=== PATIENT | female | born 1990 | race Caucasian/White ===

== ENCOUNTER 2016-05-21 18:48 | Emergency (ER) | payer MEDICAID ==
[~2016-05-21 18:48] MED LIST: MACR100C2 PO; PROM1SUP7 RECTAL
--- NOTE | 2016-05-21 19:27 | PD ---
HPI Chief Complaint right lower quadrant pain Date Seen: May 21, 2016 Time Seen: 19:00 Travel History International Travel<30 Days: No Contact w/Intl Traveler<30Days: No Known Affected Area: No History of Present Illness HPI 26yo [id number](1 ectopic) presents with right lower quadrant discomfort since yesterday. Sharp, feels best when lying down, worse with activity. Denies vaginal bleeding. Para: 1 : 5 Miscarriage: 3 History Past Medical History Medical History: Denies Significant Hx Obstetric History Obstetric History Medically treated ectopic SAB x 2 Past Surgical History Narrative Surgical appendectomy Social History Alcohol Use: No Tobacco Use: No Substance Abuse: No Allergies-Medications (Allergen,Severity, Reaction): Coded Allergies: No Known Allergies (Verified , 03/17/16) Home Meds Active Scripts Promethazine Supp (Phenergan Supp)25 Mg Supp25 Mg RECTAL Q6H PRN (NAUSEA OR VOMITING) #14 SUPP Ref 0 Prov:Shan Alves MD 03/19/16 Nitrofurantoin Monohydrate Macrocrystals (Macrobid)100 Mg [id number] Mg PO BIDPC # 10 CAP Prov:Shan Alves MD 03/19/16 Review of Systems Except as stated in HPI: all other systems reviewed are Neg Gastrointestinal: Abdominal Pain Physical Exam Narrative GENERAL: Well-nourished, well-developed patient. SKIN: Warm and dry. HEAD: Normocephalic and atraumatic. EYES: No scleral icterus. No injection or drainage. ENT: No nasal drainage noted. Mucous membranes pink. Airway patent. NECK: Supple, trachea midline. No JVD. CARDIOVASCULAR: Regular rate and rhythm without murmurs, gallops, or rubs. RESPIRATORY: Breath sounds equal bilaterally. No accessory muscle use. BREASTS: Bilateral exam showed no masses , no retractions, no nipple discharge. ABDOMEN/GI: Abdomen soft, non-tender, bowel sounds present, no rebound, no guarding Gravid to [-] weeks size Fundal Height: [-] 17 GENITOURINARY: External Genitalia: intact and normal in appearance BUS glands: [-] normal Cervix: [-] closed Dilatation: [-] closed Effacement: [-] 0% Station: [-] -3 Presentation: [-] Membranes: [intact or ruptured] Uterine Contractions: [-] FHT's: 152 by doppler Category: [-] Baseline: [-] Reactive: [-] Variability: [-] Decels: [-] EXTREMITIES: No cyanosis or edema. BACK: Nontender without obvious deformity. No CVA tenderness. NEUROLOGICAL: Awake and alert. Motor and sensory grossly within normal limits. Five out of 5 muscle strength in all muscle groups. Normal speech. Data Data Vital Signs Reviewed: Yes [facility] Medical Record Reviewed: Yes Plan 17 weeks gestation with mild right lower quadrant pain Discharge with followup to OB Diagnosis Diagnosis: Primary Impression: Abdominal pain affecting Additional Impressions: 17 weeks gestation of Previous delivery affecting , antepartum Disposition: 01 DISCHARGE HOME Julianna Rosa MD May 21, 2016 19:27
== END 2016-05-21 20:36 | disposition home or self-care (01) ==
LOC: HOBED 18:48
DX: O26.892 Other specified pregnancy related conditions, second trimester (principal); R10.31 Right lower quadrant pain; O34.219 Maternal care for unspecified type scar from previous cesarean delivery; Z3A.17 17 weeks gestation of pregnancy
CPT/HCPCS: 99284

== ENCOUNTER 2016-07-31 18:31 | Emergency (ER) | payer MEDICAID ==
[2016-07-31 18:38] VITALS: BP 200/72; PULSE 103; RESP 24; TEMP 98.8; O2SAT 98
[2016-07-31 18:45] VITALS: BP 135/74
[2016-07-31] MEDS ORDERED: ZANTTAB9 PO (23:10)
[2016-07-31] MEDS ORDERED: ACETAMINOPHEN 325 MG TAB PO ONE (23:30)
[2016-07-31] MEDS ORDERED: SODIUM CHLORIDE 0.9% FLUSH 10 ML FLUSH IVF PRN (23:30)
--- NOTE | 2016-07-31 23:55 | PD ---
HPI Chief Complaint: Cold / Flu Symptoms Time Seen by Provider: 23:28 Travel History International Travel<30 days: No Contact w/Intl Traveler<30days: No Traveled to known affect area: No History of Present Illness HPI 26-year-old female presents emergency Department with flulike symptoms as well as some nausea without vomiting as well as some vague abdominal cramping and decreased movements. She is at approximately 27 weeks gestational age. She denies any vaginal bleeding or vaginal discharge. She states that she's been having some sore throat and feeling very rundown lately. She's been taking Tylenol at home for her symptoms without relief. Her OB is Dr. Alves. [facility] Past Medical History Asthma: No Anxiety: No Depression: No Heart Rhythm Problems: No Cancer: No Cardiovascular Problems: No Chemotherapy: No Chest Pain: No Congestive Heart Failure: No COPD: No Diabetes: No Diminished Hearing: No Endocrine: No Genitourinary: No Musculoskeletal: No Neurologic: No Psychiatric: No Reproductive: No Immunizations Current: Yes Radiation Therapy: No Thyroid Disease: No ?: : 2 Para: 1 Past Surgical History Appendectomy: Yes Section: Yes Other Surgery: Yes (APPENDECTOMY, ) Social History Alcohol Use: No Tobacco Use: No Substance Use: No (OCC MARIJUANA HX) Allergies-Medications (Allergen,Severity, Reaction): Coded Allergies: No Known Allergies (Verified , 07/31/16) Reported Meds & Prescriptions Reported Meds & Active Scripts Active Reported Zantac 75 (Ranitidine HCl) 75 Mg Tab 75 Mg PO DAILY Take 30 to 60 minutes before eating food or drinking beverages that cause heartburn. Review of Systems Except as stated in HPI: all other systems reviewed are Neg Physical Exam Narrative GENERAL: Well-developed well-nourished no apparent distress. SKIN: Focused skin assessment warm/dry. HEAD: Atraumatic. Normocephalic. EYES: Pupils equal and round. No scleral icterus. No injection or drainage. ENT: No nasal bleeding or discharge. Mucous membranes pink and dry. NECK: Trachea midline. No JVD. CARDIOVASCULAR: Regular rate and rhythm. No murmur appreciated. RESPIRATORY: No accessory muscle use. Clear to auscultation. Breath sounds equal bilaterally. GASTROINTESTINAL: Abdomen soft, non-tender, nondistended. Hepatic and splenic margins not palpable. Gravid abdomen. MUSCULOSKELETAL: No obvious deformities. No clubbing. No cyanosis. No edema. NEUROLOGICAL: Awake and alert. No obvious cranial nerve deficits. Motor grossly within normal limits. Normal speech. PSYCHIATRIC: Appropriate mood and affect; insight and judgment normal. Data Data Last Documented VS Vital Signs Date Time Temp Pulse Resp B/P Pulse Ox O2 Delivery O2 Flow Rate FiO2 08/01/16 00:07 88 18 99 Room Air 07/31/16 18:45 135/74 07/31/16 18:38 98.8 Orders Influenzae A/B Antigen (07/31/16 23:02) Ed Poc Ultrasound (07/31/16 ) Complete Blood Count With Diff (07/31/16 23:28) Comprehensive Metabolic Panel (07/31/16 23:28) Chest, Single Ap (07/31/16 23:28) Ecg Monitoring (07/31/16 23:28) Iv Access Insert/Monitor (07/31/16 23:28) Oximetry (07/31/16 23:28) Oxygen Administration (07/31/16 23:28) Sodium Chloride 0.9% Flush (Ns Flush) (07/31/16 23:30) Acetaminophen (Tylenol) (07/31/16 23:30) Labs Laboratory Tests Test 07/31/16 23:59 White Blood Count 9.8 TH/MM3 Red Blood Count 4.47 MIL/MM3 Hemoglobin 13.8 GM/DL Hematocrit 39.9 % Mean Corpuscular Volume 89.2 FL Mean Corpuscular Hemoglobin 30.9 PG Mean Corpuscular Hemoglobin 34.6 % Concent Red Cell Distribution Width 12.7 % Platelet Count 139 TH/MM3 Mean Platelet Volume 10.8 FL Neutrophils (%) (Auto) 77.5 % Lymphocytes (%) (Auto) 12.5 % Monocytes (%) (Auto) 7.7 % Eosinophils (%) (Auto) 2.1 % Basophils (%) (Auto) 0.2 % Neutrophils # (Auto) 7.6 TH/MM3 Lymphocytes # (Auto) 1.2 TH/MM3 Monocytes # (Auto) 0.8 TH/MM3 Eosinophils # (Auto) 0.2 TH/MM3 Basophils # (Auto) 0.0 TH/MM3 CBC Comment DIFF FINAL Differential Comment Sodium Level 139 MEQ/L Potassium Level 3.7 MEQ/L Chloride Level 104 MEQ/L Carbon Dioxide Level 23.3 MEQ/L Anion Gap 12 MEQ/L Blood Urea Nitrogen 5 MG/DL Creatinine 0.50 MG/DL Estimat Glomerular Filtration 148 ML/MIN Rate Random Glucose 83 MG/DL Calcium Level 8.8 MG/DL Total Bilirubin 0.1 MG/DL Aspartate Amino Transf 16 U/L (AST/SGOT) Alanine Aminotransferase 23 U/L (ALT/SGPT) Alkaline Phosphatase 77 U/L Total Protein 7.1 GM/DL Albumin 3.0 GM/DL MDM Medical Decision Making Medical Screen Exam Complete: Yes Emergency Medical Condition: Yes Differential Diagnosis Influenza, pneumonia, dehydration, abdominal cramping in . Narrative Course Patient was roomed in the emergency department, rapid flu test is negative, chest x-ray ordered as well as basic labs and fluid rehydration. Patient was discussed with Dr. Underwood to be sent to OB for evaluation of her abdominal pain and continued evaluation of her upper respiratory symptoms she is agreed that the patient should be moved to the OB evaluation area. An IV was started and basic labs are sent. Diagnosis Primary Impression: Abdominal pain affecting Additional Impression: URI (upper respiratory infection) Disposition: 70 TRANSFER TO OTHER FACILITY (taken to OB floor) Condition: Stable Brett Russell MD Jul 31, 2016 23:54
[2016-08-01 00:07] VITALS: PULSE 88; RESP 18; O2SAT 99
[2016-08-01 00:09] LABS: AUTOMATED NEUTROPHIL # 7.6 TH/MM3 (1.8-7.7); BASOPHIL % 0.2 % (0.0-2.0); EOSINOPHIL # 0.2 TH/MM3 (0-0.4); EOSINOPHIL % 2.1 % (0.0-4.0); HEMATOCRIT 39.9 % (35.0-46.0); HEMO FLAGS DIFF FINAL; LYMPH % 12.5 % (9.0-44.0); LYMPHOCYTE # 1.2 TH/MM3 (1.0-4.8); MEAN CELL VOLUME 89.2 FL (80.0-100.0); MEAN CORPUSCULAR HEMOGLOBIN 30.9 PG (27.0-34.0); MEAN CORPUSCULAR HGB CONC 34.6 % (32.0-36.0); MONO % 7.7 % (0.0-8.0); NEUT % 77.5 % (16.0-70.0); PLATELET COUNT 139 TH/MM3 (150-450); RED BLOOD COUNT 4.47 MIL/MM3 (4.00-5.30); RED CELL DISTRIBUTION WIDTH 12.7 % (11.6-17.2); WHITE BLOOD COUNT 9.8 TH/MM3 (4.0-11.0)
--- NOTE | 2016-08-01 00:13 | RADRPT ---
EXAM DATE/TIME: 08/01/2016 00:05 [place] COMPARISON: No previous studies available for comparison. INDICATIONS : Chest pain, cough, and congestion. MEDICAL HISTORY : None. SURGICAL HISTORY : None. ENCOUNTER: Initial ACUITY: 4 - 6 days PAIN SCORE: 1/10 LOCATION: Bilateral chest FINDINGS: A single view of the chest demonstrates the lungs to be symmetrically aerated without evidence of mas s, infiltrate or effusion. The cardiomediastinal contours are unremarkable. Osseous structures are intact. CONCLUSION: Normal examination. Shan Rodriguez MD on August 01, 2016 at 0:11 Board Certified Radiologist. This report was verified electronically.
[2016-08-01 00:40] LABS: ANION GAP 12 MEQ/L (5-15); AST (GOT) 16 U/L (15-37); BICARBONATE 23.3 MEQ/L (21.0-32.0); BLOOD UREA NITROGEN 5 MG/DL (7-18); CHLORIDE 104 MEQ/L (98-107); GLOMERULAR FILTRATION RATE 148 ML/MIN (>89); POTASSIUM 3.7 MEQ/L (3.5-5.1); SODIUM (NA) 139 MEQ/L (136-145)
[2016-08-01 00:43] LABS: ALKALINE PHOSPHATASE 77 U/L (45-117); ALT (GPT) 23 U/L (10-53); TOTAL BILIRUBIN ADULT 0.1 MG/DL (0.2-1.0)
--- NOTE | 2016-08-01 01:23 | PD ---
HPI Chief Complaint Nasal congestion, sinus pressure and decreased movement Date Seen: Aug 01, 2016 Time Seen: 01:18 Travel History International Travel<30 Days: No Contact w/Intl Traveler<30Days: No Known Affected Area: No History of Present Illness HPI 26-year-old female at 27 weeks 2 days complains of nasal congestion and decrease appetite since Saturday. Denies fever denies coughing denies shortness of breath. Patient has been evaluated down in the main emergency department and diagnosed with a viral infection and told to take [id number] medications as necessary. Patient has a follow-up OB appointment tomorrow Para: 1 : 5 History Past Medical History Medical History: Denies Significant Hx Obstetric History Obstetric History section Past Surgical History Narrative Surgical Cholecystectomy and section Family History Family History: Negative Social History Alcohol Use: No Tobacco Use: No Substance Abuse: No Allergies-Medications (Allergen,Severity, Reaction): Coded Allergies: No Known Allergies (Verified , 07/31/16) Home Meds Reported Medications Ranitidine (Zantac 75)75 Mg Tab75 Mg PO DAILY Ref 0 Take 30 to 60 minutes before eating food or drinking beverages that cause heartburn. 07/31/16 Discontinued Scripts Promethazine Supp (Phenergan Supp)25 Mg Supp25 Mg RECTAL Q6H PRN (NAUSEA OR VOMITING) #14 SUPP Ref 0 Prov:Shan Alves MD 03/19/16 Nitrofurantoin Monohydrate Macrocrystals (Macrobid)100 Mg Tsb591 Mg PO BIDPC # 10 CAP Prov:Shan Alves MD 03/19/16 Review of Systems General / Constitutional: Chills HENT: Other (nasal congestion) Physical Exam Vital Signs Date Time Temp Pulse Resp B/P Pulse Ox O2 Delivery O2 Flow Rate FiO2 08/01/16 00:07 88 18 99 Room Air 07/31/16 18:45 135/74 07/31/16 18:38 98.8 103 24 200/72 98 Narrative GENERAL: Well-nourished, well-developed patient. SKIN: Warm and dry. HEAD: Normocephalic and atraumatic. EYES: No scleral icterus. No injection or drainage. ENT: Nasal congestion is noted .Mucous membranes pink. Airway patent. NECK: Supple, trachea midline. No JVD. CARDIOVASCULAR: Regular rate and rhythm without murmurs, gallops, or rubs. RESPIRATORY: Breath sounds equal bilaterally. No accessory muscle use. BREASTS: Bilateral exam showed no masses , no retractions, no nipple discharge. ABDOMEN/GI: Abdomen soft, non-tender, bowel sounds present, no rebound, no guarding Gravid to [-] weeks size pelvic exam deferred Fundal Height: [-] GENITOURINARY: External Genitalia: intact and normal in appearance BUS glands: [-] Cervix: [-] Dilatation: [-] Effacement: [-] Station: [-] Presentation: [-] Membranes: [intact or ruptured] Uterine Contractions: [-] FHT's: Category: [-1] Baseline: 130 Reactive: Moderate Variability: Moderate Decels: [Absent-] EXTREMITIES: No cyanosis or edema. BACK: Nontender without obvious deformity. No CVA tenderness. NEUROLOGICAL: Awake and alert. Motor and sensory grossly within normal limits. Five out of 5 muscle strength in all muscle groups. Normal speech. Data Data Vital Signs Reviewed: Yes Orders Influenzae A/B Antigen (07/31/16 23:02) Ed Poc Ultrasound (07/31/16 ) Complete Blood Count With Diff (07/31/16 23:28) Comprehensive Metabolic Panel (07/31/16 23:28) Chest, Single Ap (07/31/16 23:28) Ecg Monitoring (07/31/16 23:28) Iv Access Insert/Monitor (07/31/16 23:28) Oximetry (07/31/16 23:28) Oxygen Administration (07/31/16 23:28) Sodium Chloride 0.9% Flush (Ns Flush) (07/31/16 23:30) Acetaminophen (Tylenol) (07/31/16 23:30) Labs Laboratory Tests Test 07/31/16 23:59 White Blood Count 9.8 Red Blood Count 4.47 Hemoglobin 13.8 Hematocrit 39.9 Mean Corpuscular Volume 89.2 Mean Corpuscular Hemoglobin 30.9 Mean Corpuscular Hemoglobin 34.6 Concent Red Cell Distribution Width 12.7 Platelet Count 139 Mean Platelet Volume 10.8 Neutrophils (%) (Auto) 77.5 Lymphocytes (%) (Auto) 12.5 Monocytes (%) (Auto) 7.7 Eosinophils (%) (Auto) 2.1 Basophils (%) (Auto) 0.2 Neutrophils # (Auto) 7.6 Lymphocytes # (Auto) 1.2 Monocytes # (Auto) 0.8 Eosinophils # (Auto) 0.2 Basophils # (Auto) 0.0 CBC Comment DIFF FINAL Differential Comment Sodium Level 139 Potassium Level 3.7 Chloride Level 104 Carbon Dioxide Level 23.3 Anion Gap 12 Blood Urea Nitrogen 5 Creatinine 0.50 Estimat Glomerular Filtration 148 Rate Random Glucose 83 Calcium Level 8.8 Total Bilirubin 0.1 Aspartate Amino Transf 16 (AST/SGOT) Alanine Aminotransferase 23 (ALT/SGPT) Alkaline Phosphatase 77 Total Protein 7.1 Albumin 3.0 Date/Time Procedure Status Source Growth 07/31/16 23:15 Influenza Types A,B Antigen (DEMETRICE) - Final Complete Nasal Aspirate NEGATIVE FOR FLU A AND B ANTIGEN.... MDM Plan 26-year-old female with decreased movement now normal with a category 1 heart rate tracing. Virus upper respiratory infection no signs of bacterial infection, patient is afebrile at this time this was evaluated fully in the emergency department Follow-up with OB as scheduled Diagnosis Diagnosis: Primary Impression: Abdominal pain affecting Additional Impression: URI (upper respiratory infection) Disposition: DISCHARGE HOME Condition: Stable Julianna Rosa MD Aug 01, 2016 01:22
== END 2016-08-01 01:30 | disposition home or self-care (01) ==
LOC: NEPD 18:31 → HOBED 08-01 01:30
DX: O99.512 Diseases of the respiratory system complicating pregnancy, second trimester (principal); J06.9 Acute upper respiratory infection, unspecified; R10.9 Unspecified abdominal pain; Z3A.27 27 weeks gestation of pregnancy
CPT/HCPCS: 71010; 80053; 85025; 87804; 99284

== ENCOUNTER 2016-09-03 19:35 | Inpatient (IN) | payer MEDICAID ==
[2016-09-03] VITALS (24 sets, daily range): BP systolic 131–162; BP diastolic 74–100; PULSE 64–90; RESP 18
[~2016-09-03 19:35] MED LIST changes: -MACR100C2 PO; -PROM1SUP7 RECTAL; +ZANTTAB9 PO
[2016-09-03] MEDS ORDERED: LACTATED RINGER'S 1000 ML INJ 1,000 ML IV SCH ×2 (20:05→21:54)
[2016-09-03] MEDS ORDERED: ONDANSETRON HCL 4 MG/2 ML VIAL IV ONE (20:15)
[2016-09-03] MEDS ORDERED: LACTATED RINGER'S 1000 ML INJ 1,000 ML IV ONE (20:15)
--- NOTE | 2016-09-03 20:20 | PD ---
HPI Chief Complaint Headache Date Seen: September 03, 2016 Time Seen: 20:16 Travel History International Travel<30 Days: No Contact w/Intl Traveler<30Days: No Known Affected Area: No History of Present Illness HPI Patient is a 26-year-old at 32 weeks today comes in complaining of a headache since last Saturday that is unresolved with the use of Fioricet. Patient does have a history of migraine headaches. She complains of diarrhea for the past 2 days and emesis 4 today with inability to tolerate oral fluids for the past 8 hours. Patient denies fever but she does state that she is having some new onset swelling in ankles and in her hands. Denies abdominal pain but she does complain of occasional Souleymane Casper contractions. Para: 1 : 5 Miscarriage: 2 History Past Medical History Medical History: Denies Significant Hx Obstetric History Obstetric History section Cholecystectomy Ectopic Past Surgical History Narrative Surgical section, cholecystectomy and ectopic Family History Family History: Negative Social History Alcohol Use: No Tobacco Use: No Substance Abuse: No Allergies-Medications (Allergen,Severity, Reaction): Coded Allergies: No Known Allergies (Verified , 07/31/16) Home Meds Reported Medications Ranitidine (Zantac 75)75 Mg Tab75 Mg PO DAILY Ref 0 Take 30 to 60 minutes before eating food or drinking beverages that cause heartburn. 07/31/16 Review of Systems HENT: Headaches Gastrointestinal: Nausea, Vomiting, Diarrhea Physical Exam Narrative GENERAL: Well-nourished, well-developed patient. SKIN: Warm and dry. HEAD: Normocephalic and atraumatic. EYES: No scleral icterus. No injection or drainage. ENT: No nasal drainage noted. Mucous membranes pink. Airway patent. NECK: Supple, trachea midline. No JVD. CARDIOVASCULAR: Regular rate and rhythm without murmurs, gallops, or rubs. RESPIRATORY: Breath sounds equal bilaterally. No accessory muscle use. BREASTS: Bilateral exam showed no masses , no retractions, no nipple discharge. ABDOMEN/GI: Abdomen soft, non-tender, bowel sounds present, no rebound, no guarding Gravid to [-30] weeks size Fundal Height: [-] GENITOURINARY: Pelvic exam deferred External Genitalia: intact and normal in appearance BUS glands: [-] Cervix: [-] Dilatation: [-] Effacement: [-] Station: [-] Presentation: [-] Membranes: [intact or ruptured] Uterine Contractions: [Generalized irritability-] FHT's: Category: [1-] Baseline: [130-] Reactive: [-Moderate] Variability: [Moderate-] Decels: [-Single variable deceleration to 90 for 20 seconds 1 since arrival ] EXTREMITIES: No cyanosis or edema. BACK: Nontender without obvious deformity. No CVA tenderness. NEUROLOGICAL: Awake and alert. Motor and sensory grossly within normal limits. Five out of 5 muscle strength in all muscle groups. Normal speech. Data Data Orders Vital Signs (Adult) .ON ADMISSION (09/03/16 20:05) ^ Labor Status (09/03/16 20:05) Urinalysis - C+S If Indicated (09/03/16 20:05) Cbc No Diff, Includes Plts (09/03/16 20:05) Comprehensive Metabolic Panel (09/03/16 20:05) Uric Acid (09/03/16 20:05) Type And Screen (09/03/16 20:05) Lactated Ringer's 1000 Ml Inj (Lr 1000 M (09/03/16 20:05) Ondansetron Inj (Zofran Inj) (09/03/16 20:15) Lactated Ringer's 1000 Ml Inj (Lr 1000 M (09/03/16 20:15) Us Ob Bpp Wo Nst (09/03/16 20:11) Fentanyl Inj (Fentanyl Inj) (09/03/16 20:15) Labs Laboratory Tests Test 09/03/16 09/03/16 09/03/16 19:54 20:13 21:24 Urine Color YELLOW Urine Turbidity HAZY Urine pH 6.0 Urine Specific [place] 1.031 Urine Protein 300 mg/dL Urine Glucose (UA) NEG mg/dL Urine Ketones NEG mg/dL Urine Occult Blood TRACE Urine Nitrite NEG Urine Bilirubin NEG Urine Urobilinogen LESS THAN 2.0 MG/DL Urine Leukocyte Esterase NEG Urine RBC 3 /hpf Urine WBC 6 /hpf Urine Squamous Epithelial 5 /hpf Cells Urine Bacteria MANY /hpf Urine Mucus MOD /lpf Microscopic Urinalysis Comment CULTURE INDICATED Sodium Level 134 MEQ/L Potassium Level 5.4 MEQ/L Chloride Level 104 MEQ/L Carbon Dioxide Level 20.9 MEQ/L Anion Gap 9 MEQ/L Blood Urea Nitrogen 15 MG/DL Creatinine 0.58 MG/DL Estimat Glomerular Filtration 125 ML/MIN Rate Random Glucose 68 MG/DL Uric Acid 6.7 MG/DL Calcium Level 8.9 MG/DL Total Bilirubin 0.2 MG/DL Aspartate Amino Transf 58 U/L (AST/SGOT) Alanine Aminotransferase 27 U/L (ALT/SGPT) Alkaline Phosphatase 89 U/L Total Protein 6.7 GM/DL Albumin 2.8 GM/DL Blood Type O POSITIVE Antibody Screen NEGATIVE White Blood Count 13.9 TH/MM3 Red Blood Count 4.41 MIL/MM3 Hemoglobin 13.2 GM/DL Hematocrit 39.5 % Mean Corpuscular Volume 89.5 FL Mean Corpuscular Hemoglobin 30.0 PG Mean Corpuscular Hemoglobin 33.5 % Concent Red Cell Distribution Width 12.5 % Platelet Count 135 TH/MM3 Mean Platelet Volume 11.2 FL Ultrasound Gestational age based on LMP/early ultrasound 32 w GA on sonogram today 29w5d <1% 1287gm, [id number] CALEB 13.89 Doppler 4.10 Breech MDM Plan 26-year-old at 32 weeks gestation with preeclampsia with severe features, Elevated BP, elevated AST, proteinuria, and IUGR Previous with breech presentation - for repeat Start corticosteroids Magnesium sulfate prophylaxis Repeat bloodwork in am Admit to L&D Will initiate severe hypertension protocol for BP >160sys, or >110 thompson Diagnosis Diagnosis: Primary Impression: Severe preeclampsia Additional Impressions: Previous delivery affecting , antepartum Breech presentation Julianna Rosa MD September 03, 2016 20:20
[2016-09-03 20:22] LABS: BACTERIA, URINE MANY /hpf; BLOOD, URINE TRACE (NEG); COMMENT (UR) CULTURE INDICATED; CULTURE IF INDICATED CULTURE INDICATED; GLUCOSE,URINE NEG (NEG); KETONE, URINE NEG (NEG); MUCUS URINE MOD /lpf (OCC); NITRITE,URINE NEG (NEG); SQUAMOUS EPITHELIAL CELL URINE 5 /hpf (0-5); URINE COLOR YELLOW (YELLW/STRAW)
[2016-09-03 21:14] LABS: ALKALINE PHOSPHATASE 89 U/L (45-117); ALT (GPT) 27 U/L (10-53); ANION GAP 9 MEQ/L (5-15); AST (GOT) 58 U/L (15-37); BICARBONATE 20.9 MEQ/L (21.0-32.0); BLOOD UREA NITROGEN 15 MG/DL (7-18); CHLORIDE 104 MEQ/L (98-107); GLOMERULAR FILTRATION RATE 125 ML/MIN (>89); SODIUM (NA) 134 MEQ/L (136-145); TOTAL BILIRUBIN ADULT 0.2 MG/DL (0.2-1.0); URIC ACID 6.7 MG/DL (2.6-6.0)
[2016-09-03 21:15] LABS: POTASSIUM 5.4 MEQ/L (3.5-5.1)
[2016-09-03 21:31] LABS: HEMATOCRIT 39.5 % (35.0-46.0); MEAN CELL VOLUME 89.5 FL (80.0-100.0); MEAN CORPUSCULAR HGB CONC 33.5 % (32.0-36.0); PLATELET COUNT 135 TH/MM3 (150-450); RED BLOOD COUNT 4.41 MIL/MM3 (4.00-5.30); RED CELL DISTRIBUTION WIDTH 12.5 % (11.6-17.2); REVIEW FLAG FINAL; WHITE BLOOD COUNT 13.9 TH/MM3 (4.0-11.0)
[2016-09-03] MEDS ORDERED: MAGNESIUM SULFATE 40 GM PREMIX 1,000 ML ONE (21:54)
[2016-09-03] MEDS ORDERED: SODIUM CHLORIDE 0.9% FLUSH 10 ML FLUSH IV FLUSH PRN (22:00)
[2016-09-03] MEDS ORDERED: CALCIUM GLUCONATE 10% 1 GM/10 ML VIAL IV PUSH PRN (22:00)
[2016-09-03] MEDS ORDERED: BETAMETHASONE SOD PHOS/ACETATE SUSP 30 MG/5 ML VIAL IM SCH (22:00)
[2016-09-03] MEDS ORDERED: ONDANSETRON HCL 4 MG/2 ML VIAL IV PRN (22:00)
[2016-09-03] MEDS ORDERED: ACETAMINOPHEN 325 MG TAB PO PRN (22:00)
[2016-09-03] MEDS ORDERED: ZOLPIDEM TARTRATE 5 MG TAB PO PRN (22:00)
[2016-09-03] MEDS ORDERED: MAGNESIUM SULFATE 4 GM PREMIX 100 ML IV ONE (22:00)
[2016-09-03] MEDS ORDERED: LIDOCAINE 2% JELLY 30 ML TUBE ONE (22:30)
[2016-09-04] VITALS (57 sets, daily range): BP systolic 128–155; BP diastolic 58–96; PULSE 64–110; RESP 16–20; TEMP 97.6–98.8; O2SAT 98–99
[2016-09-04] MEDS: MAGNESIUM SULFATE 40 GM PREMIX 1,000 ML IV SCH ×2 (00:25→15:10)
[2016-09-04] MEDS: FAMOTIDINE 20 MG TAB PO SCH ×3 (01:11→21:00)
[2016-09-04 06:03] LABS: HEMATOCRIT 39.9 % (35.0-46.0); MEAN CELL VOLUME 88.6 FL (80.0-100.0); MEAN CORPUSCULAR HEMOGLOBIN 30.1 PG (27.0-34.0); MEAN CORPUSCULAR HGB CONC 33.9 % (32.0-36.0); PLATELET COUNT 116 TH/MM3 (150-450); RED CELL DISTRIBUTION WIDTH 12.7 % (11.6-17.2); REVIEW FLAG FINAL; WHITE BLOOD COUNT 14.6 TH/MM3 (4.0-11.0)
[2016-09-04 06:28] LABS: ALKALINE PHOSPHATASE 92 U/L (45-117); ALT (GPT) 20 U/L (10-53); ANION GAP 11 MEQ/L (5-15); AST (GOT) 17 U/L (15-37); BICARBONATE 21.6 MEQ/L (21.0-32.0); BLOOD UREA NITROGEN 11 MG/DL (7-18); CHLORIDE 103 MEQ/L (98-107); GLOMERULAR FILTRATION RATE 148 ML/MIN (>89); POTASSIUM 4.5 MEQ/L (3.5-5.1); SODIUM (NA) 136 MEQ/L (136-145); TOTAL BILIRUBIN ADULT 0.2 MG/DL (0.2-1.0)
[2016-09-04] MEDS ORDERED: OXYTOCIN 10 UNIT/ML AMP ONE (07:42)
[2016-09-04] MEDS ORDERED: ceFAZolin INJ 1,000 MG VIAL ONE (07:42)
[2016-09-04] MEDS ORDERED: ONDANSETRON HCL 4 MG/2 ML VIAL ONE (07:42)
[2016-09-04] MEDS ORDERED: ACETAMINOPHEN 1000 MG/100 ML VIAL IV ONE ×2 (07:42→09:15)
[2016-09-04] MEDS ORDERED: MORPHINE SULFATE PF 5 MG/10 ML VIAL ONE (07:43)
[2016-09-04] MEDS ORDERED: LACTATED RINGER'S 1000 ML INJ 1,000 ML IV ONE (08:00)
[2016-09-04] MEDS: LACTATED RINGER'S 1000 ML INJ 1,000 ML IV SCH ×5 (08:00→23:53)
[2016-09-04] MEDS ORDERED: LACTATED RINGER'S 1,000 ML BAG IV ONE (08:20)
[2016-09-04] MEDS ORDERED: ceFAZolin 2 GM PREMIX 50 ML IV SCH (08:30)
--- NOTE | 2016-09-04 08:53 | PD.OB.DELI ---
Procedure Note Section Procedure Performed by Shan Alves Procedure: Repeat Low Transverse Sec Indication for delivery: malposition (breech), Maternal medical problems (severe pre-eclampsia) Informed consent obtained: For anesthesia Confirmed correct: Patient, Procedure, Site, Time-out taken Anesthesia: Spinal Medication prior to procedure: As documented in eMAR Monitoring during procedure: Blood pressure monitoring, case monitor, monitor, Pulse oximetry Urinary catheter: Inserted using sterile technique, To dependent drainage Sterile preparation: Duraprep, In usual fashion Position: Supine with safety belt applied Operative Features Skin Incision: Pfannenstiel Uterine Incision: Low transverse w/knife / scissors Membranes Ruptured: Artificially Presentation: Breech Delivery of infant: Uneventful Infant: Female One Minute : 6 Five Minute : 8 Weight: 2 # 10oz Status of infant: Viable, Cord blood, Umbilical cord, Nursery present Placenta delivered: Intact, Sent to pathology Medications: Antibiotics, Oxytocin Estimated blood loss: 650 Procedure tolerated: Well Maternal Condition: Stable Condition: Stable Shan Alves MD September 04, 2016 08:53
[2016-09-04] MEDS ORDERED: SODIUM CHLORIDE 0.9% FLUSH 10 ML FLUSH IV FLUSH PRN (09:00)
[2016-09-04] MEDS ORDERED: SODIUM CHLORIDE 0.9% FLUSH 10 ML FLUSH IV FLUSH SCH (09:00)
[2016-09-04] MEDS ORDERED: OXYTOCIN 30 UNITS-500ML PREMIX 500 ML IV ONE (09:00)
[2016-09-04] MEDS ORDERED: CITRIC ACID-SODIUM CITRATE LIQ 30 ML UDC PO SCH (09:00)
[2016-09-04] MEDS ORDERED: oxyCODONE/ACETAMINOPHEN 5 MG/325 MG TAB PO PRN (09:00)
[2016-09-04] MEDS ORDERED: ONDANSETRON HCL 4 MG/2 ML VIAL IV PUSH PRN (09:00)
[2016-09-04] MEDS: SODIUM CHLORIDE 0.9% FLUSH 10 ML FLUSH IV FLUSH SCH ×2 (09:00→21:00)
[2016-09-04] MEDS ORDERED: MIDAZOLAM HCL 2 MG/2 ML VIAL ONE (09:01)
[2016-09-04 09:09] LABS: BLOOD GAS BASE EXCESS -1.9 mmol/L (-2-2); BLOOD GAS O2 HGB SATURATION 8 % (90-100); CORD BLOOD GAS HCO3 25 mmol/L (21-29); CORD BLOOD GAS PCO2 61 mmHG (34-78); CORD BLOOD GAS PH 7.23 (7.14-7.42); CORD BLOOD GAS PO2 9 mmHG (3.0-40.0); DRAW SITE CORD BLOOD; STAT NO
[2016-09-04 10:35] LABS: AMPHETAMINE, URINE NEG (NEG); COCAINE, URINE NEG (NEG)
[2016-09-04 10:38] LABS: BARBITURATES, URINE POS (NEG)
[2016-09-04] MEDS ORDERED: EPIDURAL-DIPHENHYDRAMINE HCL 50 MG/ML VIAL IV PUSH PRN (11:45)
[2016-09-04] MEDS ORDERED: EPIDURAL-NO SYSTEMIC NARCOTICS PRN (11:45)
[2016-09-04] MEDS ORDERED: EPIDURAL-NALOXONE HCL 0.4 MG/ML AMP IV PRN (11:45)
[2016-09-04] MEDS ORDERED: EPIDURAL-DIPHENHYDRAMINE HCL 50 MG CAP PO PRN (11:45)
[2016-09-04] MEDS ORDERED: EPIDURAL-DO NOT ADMINISTER ANTICOAGULANTS PRN (11:45)
[2016-09-04 14:27] LABS: BASOPHIL % 0.1 % (0.0-2.0); HEMO FLAGS DIFF FINAL; LYMPH % 6.9 % (9.0-44.0); LYMPHOCYTE # 1.4 TH/MM3 (1.0-4.8); MEAN CELL VOLUME 87.2 FL (80.0-100.0); MEAN CORPUSCULAR HEMOGLOBIN 30.8 PG (27.0-34.0); MEAN CORPUSCULAR HGB CONC 35.4 % (32.0-36.0); MONO % 6.6 % (0.0-8.0); NEUT % 86.4 % (16.0-70.0); PLATELET COUNT 121 TH/MM3 (150-450); RED BLOOD COUNT 4.24 MIL/MM3 (4.00-5.30); RED CELL DISTRIBUTION WIDTH 12.5 % (11.6-17.2); WHITE BLOOD COUNT 20.8 TH/MM3 (4.0-11.0)
[2016-09-04] MEDS: oxyCODONE/ACETAMINOPHEN 5 MG/325 MG TAB PO PRN ×2 (16:09→17:19)
[2016-09-04] MEDS: IBUPROFEN 600 MG TAB PO PRN ×2 (16:09→21:21)
[2016-09-04] MEDS ORDERED: OXYTOCIN 30 UNITS-500ML PREMIX 500 ML IV PRN (19:00)
--- NOTE | 2016-09-04 20:47 | MP ---
cc: SHAN ROMERO DATE OF SURGERY: 09/04/2016 PREOPERATIVE DIAGNOSIS: The patient is a 32 week intrauterine gestation with severe preeclampsia, HELPP syndrome, intrauterine growth restriction, breech presentation, previous section. PROCEDURE: Repeat low transverse section delivery of female . POSTOPERATIVE DIAGNOSIS: The patient is a 32 week intrauterine gestation with severe preeclampsia, HELLP syndrome, intrauterine growth restriction, breech presentation, previous section. SURGEON: Dr. Romero ANESTHESIA: Spinal. ESTIMATED BLOOD LOSS: 650 cc. DRAINS: Roman to gravity ANTIBIOTICS The patient received Ancef 2 grams prophylactically. OPERATIVE FINDINGS: A female was delivered by breech extraction. Apgars were 6 at one minute, 8 at five. Baby weighed 2 pounds 10 ounces. INDICATIONS FOR PROCEDURE: The patient presented to the OB emergency department on 09/03 with complaints of not feeling well, severe headache, blurry vision, increasing swelling of her lower extremities and visual disturbance. The patient was evaluated. Blood pressures were elevated 150/100. She had significant proteinuria. Lab values reflected increase in her liver enzymes and marginal thrombocytopenia. She was initiated on preeclampsia protocol, received betamethasone and magnesium intravenously, and repeat labs in the morning reflected a decreasing platelet count to 116,000 and increasing clinical features of preeclampsia with headache and blurry vision. Patient's blood pressures remained elevated despite use of Labetalol. Category 1, heart rate tracing was noted. Due to the significant findings, clinical concerns for HELLP syndrome were discussed with the patient and recommendation was to proceed with delivery. PROCEDURE The patient was taken to the operating room in stable condition, underwent spinal anesthetic without complication. She was prepped and draped. She had a Roman inserted by sterile technique previously. She had sequentials placed on the lower extremities for VTE prophylaxis. After she was prepped and draped pain management was assessed and she was had excellent pain control. Time-out was conducted agreed by all present in the room, previous Pfannenstiel incision was utilized carrying through the skin down through the subcutaneous layer to the fascia. The fascia was scored and extended laterally by sharp dissection, the rectus muscle in midline and then entering the peritoneal cavity sharply. The bladder blade was placed over the pubic symphysis, transverse incision was made in the lower uterine segment with careful attention to avoid any injury to adjacent vital structures. The entry into the cavity proved clear fluid. The incision was extended by use of the bandage scissor and the infant breech was delivered. The infant was delivered in total, requests delayed cord clamping by the speech and language tutor present as long as blood loss was not excessive, 45 seconds was documented before the cord was clamped and then the infant was taken to the isolette. Cord segment was obtained for cord blood gas and then the cord sample for blood typing. The placenta was removed. Trailing membranes were removed. The uterus was explored. There was no retained tissue. The uterus was closed with a double layer, using a 0 Monocryl suture, first with running locking suture followed by a second imbricating suture. Examination of the uterus and adnexa were normal. The uterus was returned to its normal anatomic position. The pelvis was irrigated. No active bleeding was noted. The perineum was then reapproximated and closed, after full count was made and correct using a running suture of 2-0 Monocryl. Muscle bellies were reapproximated with interrupted suture of 2-0 Monocryl x1 and then the fascia was closed with 0 Vicryl. The subcutaneous space was irrigated. The space was freed up of any adhesions to allow closure, and reapproximation of the subcutaneous space paying careful attention to maintain hemostasis using the electrocautery, 2-0 Monocryl was used to close the space and then francisco javier were used to reapproximate the skin edge with good result. No hematoma was identified. Dressing was applied. The patient was stable and alert. The infant was taken to NICU immediately. Shan Romero MD Lucía/RONALD /3:48 PM /8:32 PM
[2016-09-04] MEDS: DOCUSATE SODIUM 50 MG/SENNA 8.6 MG TAB PO PRN (21:20)
[2016-09-04] MEDS ORDERED: diphenhydrAMINE HCL 50 MG/ML VIAL IM ONE (23:15)
[2016-09-04] MEDS ORDERED: LORazepam 2 MG/ML VIAL IV ONE (23:45)
[2016-09-05] VITALS (12 sets, daily range): BP systolic 121–141; BP diastolic 78–94; PULSE 63–89; RESP 16–18; TEMP 97.9–98
[2016-09-05] MEDS: LACTATED RINGER'S 1000 ML INJ 1,000 ML IV SCH (04:00)
[2016-09-05 07:02] LABS: AUTOMATED NEUTROPHIL # 13.4 TH/MM3 (1.8-7.7); BASOPHIL % 0.2 % (0.0-2.0); HEMATOCRIT 40.4 % (35.0-46.0); HEMO FLAGS DIFF FINAL; LYMPHOCYTE # 2.1 TH/MM3 (1.0-4.8); MEAN CELL VOLUME 89.2 FL (80.0-100.0); MEAN CORPUSCULAR HEMOGLOBIN 30.5 PG (27.0-34.0); MEAN CORPUSCULAR HGB CONC 34.1 % (32.0-36.0); MONO % 5.7 % (0.0-8.0); NEUT % 81.1 % (16.0-70.0); PLATELET COUNT 121 TH/MM3 (150-450); RED BLOOD COUNT 4.53 MIL/MM3 (4.00-5.30); RED CELL DISTRIBUTION WIDTH 12.5 % (11.6-17.2); WHITE BLOOD COUNT 16.5 TH/MM3 (4.0-11.0)
--- NOTE | 2016-09-05 08:37 | HHI.OB ---
Subjective Post Operative Day: 1 Remarks s/p repeat LTCD at 32 wks due to PreEclampsia with severe features now s/p magnesium sulfate x 24h after delivery female in NICU for prematurity Objective Vitals/I&O Vital Signs Date Time Temp Pulse Resp B/P Pulse Ox O2 Delivery O2 Flow Rate FiO2 09/05/16 08:00 89 138/94 09/05/16 07:00 63 125/90 09/05/16 06:53 16 09/05/16 06:04 67 140/93 09/05/16 05:00 66 130/82 09/05/16 04:00 63 124/81 09/05/16 03:58 97.9 09/05/16 03:00 63 129/93 09/05/16 02:00 67 121/80 09/05/16 01:01 72 127/78 09/05/16 00:00 98.0 09/05/16 00:00 67 138/84 09/04/16 23:00 76 128/82 09/04/16 22:00 76 141/91 09/04/16 21:00 71 133/85 09/04/16 20:00 69 138/89 09/04/16 19:00 77 135/90 09/04/16 19:00 97.9 09/04/16 18:18 20 09/04/16 18:00 73 20 134/87 09/04/16 17:00 79 137/88 09/04/16 17:00 20 09/04/16 16:00 98.8 77 20 133/86 09/04/16 15:00 20 09/04/16 15:00 82 134/85 09/04/16 14:00 98.8 09/04/16 14:00 92 20 136/89 09/04/16 13:00 72 130/88 09/04/16 12:54 85 131/87 09/04/16 12:15 20 09/04/16 12:00 86 137/86 09/04/16 11:08 80 134/89 09/04/16 11:08 20 Result Diagram: 09/05/16 0601 09/04/16 0430 Objective Remarks GENERAL: Well-nourished, well-developed patient. CARDIOVASCULAR: Regular rate and rhythm without murmurs, gallops, or rubs. RESPIRATORY: Breath sounds equal bilaterally. No accessory muscle use. ABDOMEN/GI: Abdomen soft, non-tender, bowel sounds present. Incision: bandage intact; small area of seepage outlined from yesterday not expanded. Fundus: Firm, non-tender at umbilicus. GENITOURINARY: Light to moderate bleeding. EXTREMITIES: No cyanosis, non-tender, without signs of DVT. pitting edema b/l to ankles Medications and IVs Current Medications Medications (Trade) Dose Ordered Sig/Ernesto Route Start Time Stop Time Status Last Admin (fentaNYL INJ) 50 mcg ONCE PRN IV PUSH 09/03/16 20:15 09/04/16 02:23 (NS Flush) 2 ml UNSCH PRN IV FLUSH 09/03/16 22:00 Sodium Chloride 2 ml 2 ml BID IV FLUSH 09/04/16 09:00 (Magnesium Sulfate 40 Gm Premix) 1,000 ml @ 50 mls/hr Q20H IV 09/03/16 21:54 09/04/16 15:10 (Calcium Gluconate Inj) 1 gm UNSCH PRN IV PUSH 09/03/16 22:00 (Tylenol) 650 mg Q4H PRN PO 09/03/16 22:00 09/04/16 00:22 (Zofran Inj) 4 mg Q6H PRN IV 09/03/16 22:00 (Ambien) 5 mg HS PRN PO 09/03/16 22:00 09/04/16 00:22 (Pepcid) 20 mg BID PO 09/04/16 01:00 09/04/16 21:00 Fentanyl Citrate 50 mcg 50 mcg Q6H PRN IV 09/04/16 01:00 Lactated Ringer's 1,000 ml @ 150 mls/hr Q6H40M IV 09/04/16 08:00 09/04/16 22:17 (Lr 1000 ml Inj) 1,000 ml @ 100 mls/hr Q10H IV 09/04/16 13:53 09/05/16 09:52 (Mylicon Chew) 80 mg QID PRN PO 09/04/16 09:00 (Motrin) 600 mg Q6H PRN PO 09/04/16 09:00 09/04/16 21:21 (Percocet 5-325 Mg) 1 tab Q4H PRN PO 09/04/16 09:00 09/04/16 17:19 (Percocet 5-325 Mg) 2 tab Q4H PRN PO 09/04/16 09:00 09/04/16 21:21 (Roxanne-Colace) 2 tab Q12H PRN PO 09/04/16 09:00 09/04/16 21:20 (M-M-R Ii Inj) 0.5 ml ONCE ONCE SQ 09/05/16 16:00 09/05/16 16:01 (Boostrix Inj) 0.5 ml ONCE ONCE IM 09/05/16 16:00 09/05/16 16:01 (Zofran Inj) 4 mg Q6H PRN IV PUSH 09/04/16 09:00 Assessment/Plan Problem List: (1) Severe pre-eclampsia complicating childbirth (2) delivery (3) Status post repeat low transverse section Assessment and Plan POD#1 s/p repeat LTCD at 32 wks for PreEclampsia with severe features, breech, IUGR s/p 24h of magnesium sulfate post delivery, BP and labs improving, pt feeling better, HAGER mild, edema improving transfer to PP floor, continue to monitor closely encouraged ambulate, eat, shower later today & remove bandage anticipate d/c POD#3 in NICU for prematurity Discharge Planning POD#3 expected Mary Lou Kingston MD September 05, 2016 08:37
[2016-09-05] MEDS: SODIUM CHLORIDE 0.9% FLUSH 10 ML FLUSH IV FLUSH SCH (09:00)
[2016-09-05] MEDS: FAMOTIDINE 20 MG TAB PO SCH ×2 (09:05→20:18)
[2016-09-05] MEDS: IBUPROFEN 600 MG TAB PO PRN ×2 (11:30→20:18)
[2016-09-05] MEDS: DOCUSATE SODIUM 50 MG/SENNA 8.6 MG TAB PO PRN ×2 (11:30→23:35)
[2016-09-05] MEDS: ACETAMINOPHEN/HYDROcodone 325 MG/5 MG TAB PO PRN ×3 (11:31→20:18)
[2016-09-05] MEDS ORDERED: DIPHTH/TETANUS/ACEL PERTUSSIS (BOOSTER) 0.5 ML VIAL/PFS IM ONE (16:00)
[2016-09-05] MEDS ORDERED: MEASLES, MUMPS, RUBELLA VACCINE 0.5 ML VIAL SQ ONE (16:00)
[2016-09-05] MEDS: SIMETHICONE 80 MG CHEWABLE TAB PO PRN (23:35)
[2016-09-06] MEDS: ACETAMINOPHEN/HYDROcodone 325 MG/5 MG TAB PO PRN ×4 (01:55→21:18)
[2016-09-06] MEDS: IBUPROFEN 600 MG TAB PO PRN ×4 (01:55→21:17)
[2016-09-06] MEDS: SIMETHICONE 80 MG CHEWABLE TAB PO PRN (06:17)
[2016-09-06 06:59] VITALS: BP 141/67; PULSE 67; RESP 16; TEMP 98
--- NOTE | 2016-09-06 08:40 | HHI.OB ---
Subjective Post Operative Day: 2 Remarks doing well pain control had diarrhea x 3 overnight, requesting medication ambulating min lochia no macdonald/vis changes, ruq pain Objective Vitals/I&O Vital Signs Date Time Temp Pulse Resp B/P Pulse Ox O2 Delivery O2 Flow Rate FiO2 09/06/16 06:59 98.0 67 16 141/67 09/05/16 19:09 98.0 09/05/16 19:09 75 18 141/91 Result Diagram: 09/05/16 0601 09/04/16 0430 Objective Remarks GENERAL: Well-nourished, well-developed patient. CARDIOVASCULAR: Regular rate and rhythm without murmurs, gallops, or rubs. RESPIRATORY: Breath sounds equal bilaterally. No accessory muscle use. ABDOMEN/GI: Abdomen soft, non-tender, bowel sounds present. Incision: c d i, francisco javier in place Fundus: Firm, non-tender at umbilicus. GENITOURINARY: Light to moderate bleeding. EXTREMITIES: No cyanosis, non-tender, without signs of DVT. pitting edema b/l to ankles Medications and IVs Current Medications Medications (Trade) Dose Ordered Sig/Ernesto Route Start Time Stop Time Status Last Admin (NS Flush) 2 ml UNSCH PRN IV FLUSH 09/03/16 22:00 (NS Flush) 2 ml BID IV FLUSH 09/04/16 09:00 09/05/16 09:00 (Calcium Gluconate Inj) 1 gm UNSCH PRN IV PUSH 09/03/16 22:00 (Tylenol) 650 mg Q4H PRN PO 09/03/16 22:00 09/04/16 00:22 (Ambien) 5 mg HS PRN PO 09/03/16 22:00 09/04/16 00:22 (Pepcid) 20 mg BID PO 09/04/16 01:00 09/05/16 20:18 (Mylicon Chew) 80 mg QID PRN PO 09/04/16 09:00 09/06/16 06:17 (Motrin) 600 mg Q6H PRN PO 09/04/16 09:00 09/06/16 01:55 (Roxanne-Colace) 2 tab Q12H PRN PO 09/04/16 09:00 09/05/16 23:35 (Zofran Inj) 4 mg Q6H PRN IV PUSH 09/04/16 09:00 ([place] 5-325 Mg) 1 tab Q4H PRN PO 09/05/16 08:45 09/05/16 16:05 ([place] 5-325 Mg) 2 tab Q6H PRN PO 09/05/16 15:45 09/06/16 01:55 Assessment/Plan Problem List: (1) Severe pre-eclampsia complicating childbirth (2) delivery (3) Status post repeat low transverse section Assessment and Plan POD#2 s/p repeat LTCD at 32 wks for PreEclampsia with severe features, breech, IUGR Cont supportive care s/p 24h of magnesium sulfate post delivery, BP and labs improving, normal to mild range elevation. pt feeling better anticipate d/c POD#3 in NICU for prematurity Discharge Planning POD#3 expected Paloma Johansen MD September 06, 2016 08:40
[2016-09-06] MEDS: SODIUM CHLORIDE 0.9% FLUSH 10 ML FLUSH IV FLUSH SCH (09:00)
[2016-09-06] MEDS: FAMOTIDINE 20 MG TAB PO SCH (09:18)
[2016-09-06] MEDS: LOPERAMIDE HCL 2 MG CAP PO PRN ×2 (09:53→15:37)
[2016-09-06 16:00] VITALS: BP 139/90; PULSE 73; RESP 18
[2016-09-07] MEDS: IBUPROFEN 600 MG TAB PO PRN ×2 (04:18→10:01)
[2016-09-07] MEDS: ACETAMINOPHEN/HYDROcodone 325 MG/5 MG TAB PO PRN ×2 (04:19→10:01)
[2016-09-07 06:06] LABS: AUTOMATED NEUTROPHIL # 7.2 TH/MM3 (1.8-7.7); BASOPHIL % 0.2 % (0.0-2.0); EOSINOPHIL # 0.1 TH/MM3 (0-0.4); HEMO FLAGS DIFF FINAL; LYMPH % 19.8 % (9.0-44.0); MEAN CELL VOLUME 89.3 FL (80.0-100.0); MEAN CORPUSCULAR HEMOGLOBIN 31.4 PG (27.0-34.0); MEAN CORPUSCULAR HGB CONC 35.2 % (32.0-36.0); MONO % 7.2 % (0.0-8.0); NEUT % 71.8 % (16.0-70.0); PLATELET COUNT 127 TH/MM3 (150-450); RED CELL DISTRIBUTION WIDTH 12.7 % (11.6-17.2)
[2016-09-07 06:31] LABS: BICARBONATE 24.5 MEQ/L (21.0-32.0); CALCIUM-PROTEIN CORRECTED 7.9 MG/DL (8.5-10.1); POTASSIUM 4.2 MEQ/L (3.5-5.1); TOTAL BILIRUBIN ADULT 0.2 MG/DL (0.2-1.0); URIC ACID 4.6 MG/DL (2.6-6.0)
[2016-09-07 07:28] LABS: PHENCYCLIDINE URINE NEG (NEG)
[2016-09-07 07:29] LABS: BATH SALTS (MDPV) UR NEG (NEG); ECSTASY (MDMA) UR NEG (NEG); GABAPENTIN UR NEG (NEG); HEROIN (6-ACETYLMORPHINE) UR NEG (NEG); HYDROMORPHONE U NEG (NEG); K2 SPICE UR NEG (NEG); OBMETHADONE UR NEG (NEG); OXYCODONE (PERCODAN) NEG (NEG)
[2016-09-07 08:00] VITALS: BP 140/83; PULSE 67; RESP 18; TEMP 97.8
--- NOTE | 2016-09-07 08:03 | HHI.OB ---
Subjective Post Operative Day: 3 Remarks no complaints, ready for discharge home Objective Vitals/I&O Vital Signs Date Time Temp Pulse Resp B/P Pulse Ox O2 Delivery O2 Flow Rate FiO2 09/06/16 16:00 73 18 139/90 Result Diagram: 09/07/16 0502 09/07/16 0502 Objective Remarks GENERAL: Well-nourished, well-developed patient. CARDIOVASCULAR: Regular rate and rhythm without murmurs, gallops, or rubs. RESPIRATORY: Breath sounds equal bilaterally. No accessory muscle use. ABDOMEN/GI: Abdomen soft, non-tender, bowel sounds present. Incision: c d i, francisco javier in place Fundus: Firm, non-tender at umbilicus. GENITOURINARY: Light to moderate bleeding. EXTREMITIES: No cyanosis, non-tender, without signs of DVT. pitting edema b/l to ankles Medications and IVs Current Medications Medications (Trade) Dose Ordered Sig/Ernesto Route Start Time Stop Time Status Last Admin (NS Flush) 2 ml UNSCH PRN IV FLUSH 09/03/16 22:00 (NS Flush) 2 ml BID IV FLUSH 09/04/16 09:00 09/05/16 09:00 (Calcium Gluconate Inj) 1 gm UNSCH PRN IV PUSH 09/03/16 22:00 (Tylenol) 650 mg Q4H PRN PO 09/03/16 22:00 09/04/16 00:22 (Ambien) 5 mg HS PRN PO 09/03/16 22:00 09/04/16 00:22 (Pepcid) 20 mg BID PO 09/04/16 01:00 09/06/16 09:18 (Mylicon Chew) 80 mg QID PRN PO 09/04/16 09:00 09/06/16 06:17 (Motrin) 600 mg Q6H PRN PO 09/04/16 09:00 09/07/16 04:18 (Roxanne-Colace) 2 tab Q12H PRN PO 09/04/16 09:00 09/05/16 23:35 (Zofran Inj) 4 mg Q6H PRN IV PUSH 09/04/16 09:00 ([place] 5-325 Mg) 1 tab Q4H PRN PO 09/05/16 08:45 5/24/17 16:05 ([place] 5-325 Mg) 2 tab Q6H PRN PO 09/05/16 15:45 09/07/16 04:19 (Imodium) 2 mg Q6H PRN PO 09/06/16 09:00 09/06/16 15:37 Assessment/Plan Problem List: (1) Severe pre-eclampsia complicating childbirth (2) delivery (3) Status post repeat low transverse section Assessment and Plan POD#3 s/p repeat LTCD at 32 wks for PreEclampsia with severe features, breech, IUGR Cont supportive care s/p 24h of magnesium sulfate post delivery, BP and labs improving, normal to mild range elevation. pt feeling better d/c POD#3 in NICU for prematurity Discharge Planning POD#3 expected Attending Attestation pt seen by Peace Zamarripa MD September 07, 2016 08:03
[2016-09-07] MEDS ORDERED: HYDR-3516 PO (08:05)
--- NOTE | 2016-09-07 08:05 | HHI.DCPOC ---
Discharge Care Plan Your Health Problems Are: Pelvic pain Report Symptoms to Your Doctor -Temperate above 100.5 degrees -Redness, of incision or excessive or foul smelling drainage -Unusual pain or calf pain -Increased vaginal bleeding -Painful or difficulty urinating -Feelings of extreme sadness or anxiety after 2 weeks Goals to Promote Your Health * To prevent worsening of your condition and complications * To maintain your health at the optimal level Directions to Meet Your Goals Take your medications as prescribed Follow your dietary instruction Follow activity as directed Ensure plenty of rest for recovery Drink fluids for hydration Keep your appointments as scheduled Take your immunizations and boosters as scheduled If your symptoms worsen call your PCP, if no PCP go to Urgent Care Center or Emergency Room Smoking is Dangerous to Your Health. Avoid second hand smoke Call the 24-hour crisis hotline for domestic abuse at Peace Munguia MD September 07, 2016 08:05
[2016-09-07] MEDS: SIMETHICONE 80 MG CHEWABLE TAB PO PRN (10:00)
[2016-09-07] MEDS: FAMOTIDINE 20 MG TAB PO SCH (10:01)
[2016-09-08] MEDS ORDERED: IBUP-232 PO (16:07)
[2016-09-08] MEDS ORDERED: NIFE1TAB85 PO (17:01)
== END 2016-09-07 15:09 | disposition home or self-care (01) | DRG 765 ==
LOC: HOBED 19:35 → H2EA 21:57 → H1EA 09-05 10:20
PROVIDERS: ADMIT Obstetrics & Gynecology; ATTEND Obstetrics & Gynecology
PROC: 10D00Z1 Extraction of Products of Conception, Low, Open Approach (ICD-10-PCS; principal; 2016-09-04)
DX: O14.24 HELLP syndrome, complicating childbirth (principal); O36.5930 Maternal care for other known or suspected poor fetal growth, third trimester, not applicable or unspecified; O14.14 Severe pre-eclampsia complicating childbirth; O32.1XX0 Maternal care for breech presentation, not applicable or unspecified; O34.219 Maternal care for unspecified type scar from previous cesarean delivery; O99.89 Other specified diseases and conditions complicating pregnancy, childbirth and the puerperium; R19.7 Diarrhea, unspecified; Z37.0 Single live birth; Z3A.32 32 weeks gestation of pregnancy
CPT/HCPCS: 76815; 76816; 76819; 76820; 76821; 80053; 80307; 81001; 82805; 84112; 84550; 85025; 85027; 86850; 86900; 86901; 87086; 88307; 90715; 96361; 96374; 96375; G0481; J0131; J0690; J1200; J2060; J2250; J2274; J2405; J2590; J3010; J3475; J7120; Q0163

== ENCOUNTER 2016-09-08 12:36 | Observation (INO) | payer MEDICAID ==
[~2016-09-08 12:36] MED LIST changes: +HYDR-3516 PO
[2016-09-08] MEDS ORDERED: NIFEdipine 10 MG CAP PO PRN ×5 (13:00→14:00)
[2016-09-08] MEDS ORDERED: LACTATED RINGER'S 1000 ML INJ 1,000 ML IV SCH (13:19)
[2016-09-08] MEDS ORDERED: SODIUM CHLORIDE 0.9% FLUSH 10 ML FLUSH IV FLUSH PRN (13:30)
[2016-09-08] MEDS ORDERED: ACETAMINOPHEN/HYDROcodone 325 MG/5 MG TAB PO PRN (13:30)
[2016-09-08 13:41] LABS: BASOPHIL % 0.4 % (0.0-2.0); EOSINOPHIL # 0.1 TH/MM3 (0-0.4); HEMATOCRIT 37.1 % (35.0-46.0); HEMO FLAGS DIFF FINAL; LYMPH % 15.7 % (9.0-44.0); LYMPHOCYTE # 1.8 TH/MM3 (1.0-4.8); MEAN CELL VOLUME 89.6 FL (80.0-100.0); MEAN CORPUSCULAR HEMOGLOBIN 30.1 PG (27.0-34.0); MEAN CORPUSCULAR HGB CONC 33.6 % (32.0-36.0); MONO % 5.4 % (0.0-8.0); NEUT % 77.5 % (16.0-70.0); PLATELET COUNT 169 TH/MM3 (150-450); RED BLOOD COUNT 4.14 MIL/MM3 (4.00-5.30); RED CELL DISTRIBUTION WIDTH 12.6 % (11.6-17.2); WHITE BLOOD COUNT 11.6 TH/MM3 (4.0-11.0)
--- NOTE | 2016-09-08 13:41 | PD ---
HPI Chief Complaint Headache, concern of high blood pressure Date Seen: September 08, 2016 Time Seen: 13:11 Travel History International Travel<30 Days: No Contact w/Intl Traveler<30Days: No Known Affected Area: No History of Present Illness HPI 26-year-old 2 para 2 who is 4 days status post repeat for delivery of a 32 week gestation complicated by preeclampsia with severe features. The patient had been hospitalized until yesterday. She had completed 24 hours of magnesium prophylaxis and her blood pressures were normalizing along with her laboratory values. The patient was up visiting the baby in the ICU today when she began experiencing headache and was concerned that her blood pressure may be high. She had her blood pressure checked and it was in fact tied she reported to the triage area for further evaluation. She has a history of migraine headaches and she does have a headache at this time. She denies any visual changes. She has been feeling anxious since finding her blood pressure was high and associates shortness of breath with that and her O2 saturation is 100%. She reports some chest pain which she says is often associated with her anxiety. She denies cough, hemoptysis. She notes decreased lower extremity swelling since delivery and denies any pain in her extremities. Para: 2 : 2 History Past Medical History Narrative Medical History of migraine headaches History of gastroesophageal reflux Obstetric History Obstetric History 1 was delivered by section for failure to progress 2 was delivered 4 days ago by repeat at 32 weeks gestation due to breech, carried by preeclampsia with severe features Past Surgical History Narrative Surgical Appendectomy, 2 Family History Family History: Negative Social History Alcohol Use: No Tobacco Use: No Substance Abuse: No Allergies-Medications (Allergen,Severity, Reaction): Coded Allergies: No Known Allergies (Verified , 07/31/16) Home Meds Active Scripts Hydrocodone-Acetaminophen 5-325 mg Tab2 Tab PO Q6H PRN (BREAKTHROUGH PAIN) #30 TAB Ref 0 Prov:Peace Munguia MD 09/07/16 Reported Medications Ranitidine (Zantac 75)75 Mg Tab75 Mg PO DAILY Ref 0 Take 30 to 60 minutes before eating food or drinking beverages that cause heartburn. 07/31/16 Review of Systems General / Constitutional: No: Fever, Weight Gain, Weight Loss, Chills, Other Eyes: No: Diploplia, Blurred Vision, Visual changes, Pain, Photophobia, Other HENT: Headaches, No: Vertigo, Lightheadedness Cardiovascular: Chest Pain or Discomfort, No: Irregular Rhythm, Palpitations, Syncope, Edema Respiratory: Short of Breath, No: Cough, Wheezing Gastrointestinal: Indigestion, No: Nausea, Vomiting, Diarrhea, Abdominal Pain Genitourinary: No: Decreased Urinary Output, Oliguria Skin: No Breast Tenderness, No Breast Swelling Neurologic: Headache, No: Weakness, Syncope, Focal Abnormalities Physical Exam Narrative GENERAL: Well-nourished, well-developed patient. SKIN: Warm and dry. HEAD: Normocephalic and atraumatic. EYES: No scleral icterus. No injection or drainage. ENT: No nasal drainage noted. Mucous membranes pink. Airway patent. NECK: Supple, trachea midline. No JVD. CARDIOVASCULAR: Regular rate and rhythm without murmurs, gallops, or rubs. RESPIRATORY: Breath sounds equal bilaterally. No accessory muscle use. BREASTS: Bilateral exam showed no masses , no retractions, no nipple discharge. ABDOMEN/GI: Abdomen soft, non-tender, bowel sounds present, no rebound, no guarding Incision is closed, dry with surrounding ecchymosis without cellulitis GENITOURINARY: External Genitalia: intact and normal in appearance EXTREMITIES: No cyanosis or edema. BACK: Nontender without obvious deformity. No CVA tenderness. NEUROLOGICAL: Awake and alert. Motor and sensory grossly within normal limits. Five out of 5 muscle strength in all muscle groups. Normal speech. Data Data Orders Nifedipine (Procardia) (09/08/16 13:00) Nifedipine (Procardia) (09/08/16 13:45) Comprehensive Metabolic Panel (09/08/16 13:00) Complete Blood Count With Diff (09/08/16 13:00) Acetamin-Hydrocod 325-5 Mg ([place] 5-325 (09/08/16 13:30) Place In Observation (09/08/16 ) Code Status (09/08/16 13:19) Resp Pulse Oximetry (09/08/16 ) Activity Bed Rest (09/08/16 13:19) Intake + Output Q1H (09/08/16 13:19) Notify Dr. Jones (09/08/16 13:19) ^ Check Deep Tendon Reflexes Q1H (09/08/16 13:19) Lactated Ringer's 1000 Ml Inj (Lr 1000 M (09/08/16 13:19) Sodium Chloride 0.9% Flush (Ns Flush) (09/08/16 13:30) Sodium Chloride 0.9% Flush (Ns Flush) (09/08/16 21:00) Nifedipine (Procardia) (09/08/16 13:30) Nifedipine (Procardia) (09/08/16 13:45) Nifedipine (Procardia) (09/08/16 14:00) Labetalol Inj (Trandate Inj) (09/08/16 14:30) MDM Medical Record Reviewed: Yes Narrative Course / MDM Assessment: 26-year-old female postoperative day #4 after recent complicated by preeclampsia was severe features who presents now with hypertensive crisis Plan: Observation and treatment for hypertensive crisis The hypertension emergency algorithm was activated with 10 mg of nifedipine. CBC and CMP Shan Patel MD September 08, 2016 13:41
[2016-09-08] MEDS ORDERED: clonazePAM 0.5 MG TAB PO ONE (14:00)
[2016-09-08] MEDS ORDERED: LABETALOL HCL 100 MG/20 ML VIAL IV PUSH PRN (14:30)
[2016-09-08 14:49] LABS: ALKALINE PHOSPHATASE 86 U/L (45-117); ALT (GPT) 63 U/L (10-53); ANION GAP 12 MEQ/L (5-15); AST (GOT) 51 U/L (15-37); BICARBONATE 25.4 MEQ/L (21.0-32.0); BLOOD UREA NITROGEN 14 MG/DL (7-18); CHLORIDE 103 MEQ/L (98-107); GLOMERULAR FILTRATION RATE 135 ML/MIN (>89); POTASSIUM 4.5 MEQ/L (3.5-5.1); SODIUM (NA) 140 MEQ/L (136-145); TOTAL BILIRUBIN ADULT 0.3 MG/DL (0.2-1.0)
[2016-09-08 14:55] VITALS: RESP 18
[2016-09-08 15:39] LABS: BLOOD, URINE TRACE (NEG); COMMENT (UR) CULT NOT INDICATED; CULTURE IF INDICATED CULT NOT INDICATED; GLUCOSE,URINE NEG (NEG); KETONE, URINE NEG (NEG); NITRITE,URINE NEG (NEG); PH, URINE 6.5 (5.0-8.5); SQUAMOUS EPITHELIAL CELL URINE <1 /hpf (0-5); URINE COLOR COLORLESS (YELLW/STRAW)
[2016-09-08] MEDS ORDERED: IBUP-232 PO (16:07)
[2016-09-08] MEDS ORDERED: hydrOXYzine PAMOATE 25 MG CAP PO ONE (16:15)
--- NOTE | 2016-09-08 16:51 | HHI.PR ---
WASTE PICKER Note Note The patient denies any new symptoms. She reports resolution of her shortness of breath and chest pain after the anxiolytic treatment. She continues to have a less severe headache. Examination: Her blood pressures have remained below severe range since the initial dose of 10 mg of by mouth Procardia. Her laboratory evaluation demonstrated slight improvement so her platelet count and her liver enzymes were still mildly elevated but not twice normal. Assessment: Hypertensive crisis now resolved after single dose of 10 mg of Procardia Plan: I discussed with the patient increased rest during this part of her recovery. She will continue 10 mg of Procardia twice daily. She'll follow up with her primary provider on Saturday. Precautions for returning to the hospital for evaluation were reviewed with her. Shan Patel MD September 08, 2016 16:51
[2016-09-08] MEDS ORDERED: NIFE1TAB85 PO (17:01)
--- NOTE | 2016-09-08 17:03 | HHI.DS ---
Admission Date September 08, 2016 at 13:31 Discharge Date: September 08, 2016 Admitting Diagnosis Hypertensive crisis Diagnosis: : Repeat Brief History 26-year-old 2 para 2 who is 4 days status post repeat for delivery of a 32 week gestation complicated by preeclampsia with severe features. The patient had been hospitalized until yesterday. She had completed 24 hours of magnesium prophylaxis and her blood pressures were normalizing along with her laboratory values. The patient was up visiting the baby in the ICU today when she began experiencing headache and was concerned that her blood pressure may be high. She had her blood pressure checked and it was in fact tied she reported to the triage area for further evaluation. She has a history of migraine headaches and she does have a headache at this time. She denies any visual changes. She has been feeling anxious since finding her blood pressure was high and associates shortness of breath with that and her O2 saturation is 100%. She reports some chest pain which she says is often associated with her anxiety. She denies cough, hemoptysis. She notes decreased lower extremity swelling since delivery and denies any pain in her extremities. Hospital Course The patient was admitted for hypertensive control and responded to single dose of 10 mg of nifedipine. Pt Condition on Discharge: Stable Discharge Disposition: Discharge Home Shan Patel MD September 08, 2016 17:03
[2016-09-08] MEDS ORDERED: SODIUM CHLORIDE 0.9% FLUSH 10 ML FLUSH IV FLUSH SCH (21:00)
== END 2016-09-08 17:25 | disposition home or self-care (01) ==
LOC: HOBED 12:36 → H2EA 13:31
PROVIDERS: ADMIT Obstetrics & Gynecology; ATTEND Obstetrics & Gynecology
DX: O13.5 Gestational [pregnancy-induced] hypertension without significant proteinuria, complicating the puerperium (principal); O99.355 Diseases of the nervous system complicating the puerperium; G43.909 Migraine, unspecified, not intractable, without status migrainosus; I16.9 Hypertensive crisis, unspecified
CPT/HCPCS: 80053; 81001; 85025; 99285; G0378; J7120; Q0177

== ENCOUNTER 2017-05-04 11:55 | Emergency (ER) | payer SELFPAY ==
[~2017-05-04 11:55] MED LIST changes: +IBUP-232 PO; +NIFE1TAB85 PO; -ZANTTAB9 PO
[2017-05-04 11:56] VITALS: BP 123/98; PULSE 138; RESP 22; TEMP 103.2; O2SAT 98
[2017-05-04] MEDS ORDERED: SODIUM CHLOR 0.9% 1000 ML INJ 1,000 ML IV SCH (12:10)
--- NOTE | 2017-05-04 12:11 | PD ---
HPI Chief Complaint: Cold / Flu Symptoms Time Seen by Provider: 12:06 Travel History International Travel<30 days: No Contact w/Intl Traveler<30days: No Traveled to known affect area: No History of Present Illness HPI 26-year-old female presents to the emergency department with sudden onset fever, chills, body aches, vomiting, and nausea. Patient has had cough as well which is nonproductive. Patient states it started acutely yesterday. She denies diarrhea. She's had upper respiratory congestion as well as sore throat as well. Patient is here with her son who is in pediatrics being evaluated. Patient has no known drug allergies. The patient is been taking [id number] ibuprofen and Tylenol without relief. PFSH Past Medical History Asthma: No Anxiety: No Depression: No Heart Rhythm Problems: No Cancer: No Cardiovascular Problems: No Chemotherapy: No Chest Pain: No Congestive Heart Failure: No COPD: No Diabetes: No Diminished Hearing: No Endocrine: No Genitourinary: No Musculoskeletal: No Neurologic: No Psychiatric: No Reproductive: No Immunizations Current: Yes Radiation Therapy: No Thyroid Disease: No : 2 Para: 1 Past Surgical History Appendectomy: Yes Section: Yes Other Surgery: Yes (APPENDECTOMY, ) Social History Alcohol Use: No Tobacco Use: No Substance Use: No (OCC MARIJUANA HX) Allergies-Medications (Allergen,Severity, Reaction): Coded Allergies: No Known Allergies (Verified Adverse Reaction, Unknown, 05/04/17) Reported Meds & Prescriptions Reported Meds & Active Scripts Active Zofran (Ondansetron HCl) 4 Mg Tab 4 Mg PO Q6HR PRN Tamiflu (Oseltamivir Phosphate) 75 Mg Cap 75 Mg PO BID 5 Days Procardia XL (Nifedipine) 30 Mg Tab 30 Mg PO DAILY Hydrocodone-Acetaminophen 5-325 mg Tab 2 Tab PO Q6H PRN Reported Ibuprofen 600 Mg Tab 600 Mg PO Q6H PRN Review of Systems Except as stated in HPI: all other systems reviewed are Neg General / Constitutional: Positive: Fever, Chills Eyes: No: Visual changes HENT: Positive: Headaches, Lightheadedness, Sore Throat, Rhinitis, Rhinorrhea, Congestion, No: Vertigo, Nosebleed, Neck Stiffness, Neck Pain, Dental Difficulties, Earache Cardiovascular: No: Chest Pain or Discomfort Respiratory: Positive: Cough, No: Shortness of Breath, Wheezing, Sneezing Gastrointestinal: Positive: Nausea, Vomiting, No: Diarrhea, Abdominal Pain Genitourinary: No: Dysuria Musculoskeletal: Positive: Myalgias, No: Pain Skin: No Rash Neurologic: No: Weakness Psychiatric: No: Depression Endocrine: No: Polydipsia Hematologic/Lymphatic: No: Easy Bruising Physical Exam Narrative GENERAL: Patient appears ill but not septic. SKIN: Warm and dry. Normal color. Somewhat decreased turgor. HEAD: Atraumatic. Normocephalic. EYES: Pupils equal and round. No scleral icterus. No injection or drainage. ENT: No nasal bleeding or discharge. Mucous membranes pink and moist. TMs are clear bilaterally. Pharynx is clear. Airway is patent. NECK: Trachea midline. Supple and nontender. CARDIOVASCULAR: Regular rate and rhythm. No murmurs gallops or rubs RESPIRATORY: No accessory muscle use. Clear to auscultation. Breath sounds equal bilaterally. GASTROINTESTINAL: Abdomen soft, non-tender, nondistended. Hepatic and splenic margins not palpable. MUSCULOSKELETAL: Extremities without clubbing, cyanosis, or edema. No obvious deformities. NEUROLOGICAL: Awake and alert. No obvious cranial nerve deficits. Motor grossly within normal limits. Five out of 5 muscle strength in the arms and legs. Normal speech. PSYCHIATRIC: Appropriate mood and affect; insight and judgment normal. Data Data Last Documented VS Vital Signs Date Time Temp Pulse Resp B/P (MAP) Pulse Ox O2 Delivery O2 Flow Rate FiO2 05/04/17 12:31 99 Room Air 05/04/17 11:56 103.2 138 22 Orders Orders Complete Blood Count With Diff (05/04/17 12:10) Comprehensive Metabolic Panel (05/04/17 12:10) Lactic Acid (05/04/17 12:10) Urinalysis - C+S If Indicated (05/04/17 12:10) Iv Access Insert/Monitor (05/04/17 12:10) Ecg Monitoring (05/04/17 12:10) Oximetry (05/04/17 12:10) Ondansetron Inj (Zofran Inj) (05/04/17 12:15) Sodium Chlor 0.9% 1000 Ml Inj (Ns 1000 M (05/04/17 12:10) Sodium Chloride 0.9% Flush (Ns Flush) (05/04/17 12:15) Ketorolac Inj (Toradol Inj) (05/04/17 12:15) Ed Urine Pregnancytest Poc (05/04/17 12:10) Oseltamivir (Tamiflu) (05/04/17 12:15) Acetaminophen (Tylenol) (05/04/17 12:15) Labs Laboratory Tests Test 05/04/17 12:25 05/04/17 12:30 Urine Color YELLOW Urine Turbidity CLEAR Urine pH 5.5 Urine Specific [place] 1.016 Urine Protein NEG mg/dL Urine Glucose (UA) NEG mg/dL Urine Ketones TRACE mg/dL Urine Occult Blood SMALL Urine Nitrite NEG Urine Bilirubin NEG Urine Urobilinogen LESS THAN 2.0 MG/DL Urine Leukocyte Esterase NEG Urine RBC 2 /hpf Urine WBC LESS THAN 1 /hpf Urine Squamous Epithelial Cells 1 /hpf Urine Bacteria RARE /hpf Urine Mucus FEW /lpf Microscopic Urinalysis Comment CULT NOT INDICATED White Blood Count 4.8 TH/MM3 Red Blood Count 4.82 MIL/MM3 Hemoglobin 14.8 GM/DL Hematocrit 43.9 % Mean Corpuscular Volume 91.2 FL Mean Corpuscular Hemoglobin 30.6 PG Mean Corpuscular Hemoglobin Concent 33.6 % Red Cell Distribution Width 12.0 % Platelet Count 134 TH/MM3 Mean Platelet Volume 10.5 FL Neutrophils (%) (Auto) 78.3 % Lymphocytes (%) (Auto) 10.1 % Monocytes (%) (Auto) 10.4 % Eosinophils (%) (Auto) 0.8 % Basophils (%) (Auto) 0.4 % Neutrophils # (Auto) 3.7 TH/MM3 Lymphocytes # (Auto) 0.5 TH/MM3 Monocytes # (Auto) 0.5 TH/MM3 Eosinophils # (Auto) 0.0 TH/MM3 Basophils # (Auto) 0.0 TH/MM3 CBC Comment DIFF FINAL Differential Comment Blood Urea Nitrogen 8 MG/DL Creatinine 0.72 MG/DL Random Glucose 88 MG/DL Total Protein 7.6 GM/DL Albumin 3.9 GM/DL Calcium Level 8.9 MG/DL Alkaline Phosphatase 64 U/L Aspartate Amino Transf (AST/SGOT) 18 U/L Alanine Aminotransferase (ALT/SGPT) 20 U/L Total Bilirubin 0.2 MG/DL Sodium Level 139 MEQ/L Potassium Level 3.7 MEQ/L Chloride Level 104 MEQ/L Carbon Dioxide Level 25.6 MEQ/L Anion Gap 9 MEQ/L Estimat Glomerular Filtration Rate 97 ML/MIN Lactic Acid Level 0.8 mmol/L [facility] Medical Decision Making Medical Screen Exam Complete: Yes Emergency Medical Condition: Yes Differential Diagnosis Influenza. Nausea and vomiting. Myalgia. Narrative Course Patient is medically stable at time of exam. Influenza test is not ordered as the patient obviously has the flu. Labs ordered however including CBC, CMP, lactic acid, urinalysis. Labs come back essentially unremarkable. Is given 4 mg Zofran IV as well as 30 mg Toradol IV, as well as Tamiflu 75 mg by mouth now. She is given 2 L normal saline bolus. Patient is reevaluated and felt improved. Patient is stable for discharge. Patient will be continued on Tamiflu 75 mg twice a day 5 days. Given Zofran 4 mg every 6 hours when necessary nausea vomiting #20. Patient is to rest push fluids and take Tylenol or ibuprofen as needed. Patient follow up if symptoms warrant. Note for work is given. Diagnosis Primary Impression: Influenza Additional Impression: Nausea and vomiting Qualified Codes: R11.2 - Nausea with vomiting, unspecified Referrals: Primary Care Physician Patient Instructions: General Instructions, Influenza (DC) Departure Forms: Work Release Enter return to work date: May 08, 2017 Additional Instructions: Patient is stable for discharge. Patient will be continued on Tamiflu 75 mg twice a day 5 days. Given Zofran 4 mg every 6 hours when necessary nausea vomiting #20. Patient is to rest push fluids and take Tylenol or ibuprofen as needed. Patient follow up if symptoms warrant. Note for work is given. Med/Other Pt SpecificInfo: Prescription(s) given Scripts Ondansetron (Zofran) 4 Mg Tab 4 MG PO Q6HR Y for NAUSEA OR VOMITING, #20 TAB 0 Refills Prov: Emily Horne MD 05/04/17 Oseltamivir (Tamiflu) 75 Mg Cap 75 MG PO BID for Mgmt Viral Infection for 5 Days, #10 CAP 0 Refills Prov: Emily Horne MD 05/04/17 Disposition: 01 DISCHARGE HOME Condition: Stable Weston Hernandez May 04, 2017 12:11
[2017-05-04] MEDS ORDERED: KETOROLAC TROMETHAMINE 30 MG/ML (IVP) VIAL IVP ONE (12:15)
[2017-05-04] MEDS ORDERED: SODIUM CHLORIDE 0.9% FLUSH 10 ML FLUSH IV FLUSH PRN (12:15)
[2017-05-04] MEDS ORDERED: ONDANSETRON HCL 4 MG/2 ML VIAL IVP ONE (12:15)
[2017-05-04] MEDS ORDERED: ACETAMINOPHEN 325 MG TAB PO ONE (12:15)
[2017-05-04] MEDS ORDERED: OSELTAMIVIR PHOSPHATE 75 MG CAP PO ONE (12:15)
[2017-05-04 12:31] VITALS: O2SAT 99
--- NOTE | 2017-05-04 12:52 | PD ---
Physical Exam Date Seen by Provider: May 04, 2017 Time Seen by Provider: 12:45 Narrative Patient presents with a 24-hour history of flulike symptoms. Data Data Last Documented VS Vital Signs Date Time Temp Pulse Resp B/P (MAP) Pulse Ox O2 Delivery O2 Flow Rate FiO2 05/04/17 12:31 99 Room Air 05/04/17 11:56 103.2 138 22 Orders Orders Complete Blood Count With Diff (05/04/17 12:10) Comprehensive Metabolic Panel (05/04/17 12:10) Lactic Acid (05/04/17 12:10) Urinalysis - C+S If Indicated (05/04/17 12:10) Iv Access Insert/Monitor (05/04/17 12:10) Ecg Monitoring (05/04/17 12:10) Oximetry (05/04/17 12:10) Ondansetron Inj (Zofran Inj) (05/04/17 12:15) Sodium Chlor 0.9% 1000 Ml Inj (Ns 1000 M (05/04/17 12:10) Sodium Chloride 0.9% Flush (Ns Flush) (05/04/17 12:15) Ketorolac Inj (Toradol Inj) (05/04/17 12:15) Ed Urine Pregnancytest Poc (05/04/17 12:10) Oseltamivir (Tamiflu) (05/04/17 12:15) Acetaminophen (Tylenol) (05/04/17 12:15) Labs Laboratory Tests Test 05/04/17 12:25 05/04/17 12:30 MDM Supervised Visit with RIVAS: Yes Narrative Course I, Dr. Horne, have reviewed the advance practice practitioner's documentation and am in agreement, met with the patient face to face, made the diagnosis, and the medical decision making was done by me. *My assessment and Findings: Patient is awake and alert and does not appear to be in any acute distress.Please see Kannan Hernandez PA-C's note for results of laboratory and radiographic evaluation, ED course, final diagnosis and disposition She is being treated symptomatically and with IV fluids. Vital Signs Date Time Temp Pulse Resp B/P (MAP) Pulse Ox O2 Delivery O2 Flow Rate FiO2 05/04/17 12:31 99 Room Air 05/04/17 11:56 103.2 138 22 123/98 (106) 98 Please see Kannan Hernandez PA-C's note for results of laboratory and radiographic evaluation, ED course, final diagnosis and disposition Emily Horne MD May 04, 2017 12:52
[2017-05-04 12:56] LABS: BACTERIA, URINE RARE /hpf; BILIRUBIN, URINE NEG (NEG); BLOOD, URINE SMALL (NEG); GLUCOSE,URINE NEG (NEG); KETONE, URINE TRACE mg/dL (NEG); MUCUS URINE FEW /lpf (OCC); NITRITE,URINE NEG (NEG); PH, URINE 5.5 (5.0-8.5); SQUAMOUS EPITHELIAL CELL URINE 1 /hpf (0-5); URINE COLOR YELLOW (YELLW/STRAW); URINE LEUKOCYTE ESTERASE NEG (NEG)
[2017-05-04 13:04] LABS: AUTOMATED NEUTROPHIL # 3.7 TH/MM3 (1.8-7.7); BASOPHIL % 0.4 % (0.0-2.0); EOSINOPHIL % 0.8 % (0.0-4.0); HEMATOCRIT 43.9 % (35.0-46.0); HEMOGLOBIN 14.8 GM/DL (11.6-15.3); LYMPH % 10.1 % (9.0-44.0); LYMPHOCYTE # 0.5 TH/MM3 (1.0-4.8); MEAN CELL VOLUME 91.2 FL (80.0-100.0); MEAN CORPUSCULAR HEMOGLOBIN 30.6 PG (27.0-34.0); MEAN CORPUSCULAR HGB CONC 33.6 % (32.0-36.0); MEAN PLATELET VOLUME 10.5 FL (7.0-11.0); MONO % 10.4 % (0.0-8.0); MONOCYTE # 0.5 TH/MM3 (0-0.9); NEUT % 78.3 % (16.0-70.0); PLATELET COUNT 134 TH/MM3 (150-450); RED BLOOD COUNT 4.82 MIL/MM3 (4.00-5.30); WHITE BLOOD COUNT 4.8 TH/MM3 (4.0-11.0)
[2017-05-04 13:09] LABS: ALBUMIN 3.9 GM/DL (3.4-5.0); AST (GOT) 18 U/L (15-37); BICARBONATE 25.6 MEQ/L (21.0-32.0); BLOOD UREA NITROGEN 8 MG/DL (7-18); CALCIUM 8.9 MG/DL (8.5-10.1); CHLORIDE 104 MEQ/L (98-107); CREATININE 0.72 MG/DL (0.50-1.00); GLOMERULAR FILTRATION RATE 97 ML/MIN (>89); GLUCOSE,RANDOM 88 MG/DL (74-106); SODIUM (NA) 139 MEQ/L (136-145)
[2017-05-04 13:10] LABS: ALT (GPT) 20 U/L (10-53)
[2017-05-04 13:12] LABS: ALKALINE PHOSPHATASE 64 U/L (45-117); TOTAL BILIRUBIN ADULT 0.2 MG/DL (0.2-1.0); TOTAL PROTEIN 7.6 GM/DL (6.4-8.2)
[2017-05-04] MEDS ORDERED: OSEL75 PO (13:13)
[2017-05-04] MEDS ORDERED: ZOFR4TAB PO (13:13)
[2017-05-04 13:45] VITALS: PULSE 98; TEMP 100
== END 2017-05-04 13:47 | disposition home or self-care (01) ==
LOC: NEPD 11:55
DX: J11.1 Influenza due to unidentified influenza virus with other respiratory manifestations (principal); R11.2 Nausea with vomiting, unspecified
CPT/HCPCS: 80053; 81001; 83605; 84703; 85025; 96361; 96374; 96375; 99284; J1885; J2405; J7030

== ENCOUNTER 2017-05-17 15:48 | Emergency (ER) | payer SELFPAY ==
[~2017-05-17 15:48] MED LIST changes: +OSEL75 PO; +ZOFR4TAB PO
[2017-05-17 15:49] VITALS: BP 115/55; PULSE 128; RESP 24; TEMP 100.5; O2SAT 99
[2017-05-17 16:49] LABS: BACTERIA, URINE RARE /hpf; BILIRUBIN, URINE NEG (NEG); BLOOD, URINE NEG (NEG); GLUCOSE,URINE NEG (NEG); KETONE, URINE TRACE mg/dL (NEG); MUCUS URINE MANY /lpf (OCC); NITRITE,URINE NEG (NEG); PH, URINE 5.5 (5.0-8.5); SQUAMOUS EPITHELIAL CELL URINE 14 /hpf (0-5); URINE COLOR YELLOW (YELLW/STRAW); URINE LEUKOCYTE ESTERASE NEG (NEG)
[2017-05-17 17:24] LABS: AUTOMATED NEUTROPHIL # 9.9 TH/MM3 (1.8-7.7); BASOPHIL % 0.2 % (0.0-2.0); EOSINOPHIL % 0.4 % (0.0-4.0); HEMATOCRIT 45.7 % (35.0-46.0); HEMOGLOBIN 15.9 GM/DL (11.6-15.3); LYMPH % 4.5 % (9.0-44.0); LYMPHOCYTE # 0.5 TH/MM3 (1.0-4.8); MEAN CELL VOLUME 89.4 FL (80.0-100.0); MEAN CORPUSCULAR HEMOGLOBIN 31.1 PG (27.0-34.0); MEAN CORPUSCULAR HGB CONC 34.9 % (32.0-36.0); MEAN PLATELET VOLUME 10.1 FL (7.0-11.0); MONO % 6.9 % (0.0-8.0); MONOCYTE # 0.8 TH/MM3 (0-0.9); PLATELET COUNT 220 TH/MM3 (150-450); RED BLOOD COUNT 5.12 MIL/MM3 (4.00-5.30); WHITE BLOOD COUNT 11.2 TH/MM3 (4.0-11.0)
[2017-05-17 17:31] VITALS: BP 118/59; PULSE 118; RESP 16; TEMP 97.8; O2SAT 99
[2017-05-17 17:43] LABS: ALBUMIN 3.9 GM/DL (3.4-5.0); AST (GOT) 11 U/L (15-37); BICARBONATE 27.4 MEQ/L (21.0-32.0); BLOOD UREA NITROGEN 12 MG/DL (7-18); CHLORIDE 105 MEQ/L (98-107); CREATININE 0.77 MG/DL (0.50-1.00); GLOMERULAR FILTRATION RATE 89 ML/MIN (>89); GLUCOSE,RANDOM 93 MG/DL (74-106); SODIUM (NA) 138 MEQ/L (136-145)
[2017-05-17 17:44] LABS: ALT (GPT) 14 U/L (10-53)
[2017-05-17 17:47] LABS: ALKALINE PHOSPHATASE 57 U/L (45-117); TOTAL BILIRUBIN ADULT 0.4 MG/DL (0.2-1.0); TOTAL PROTEIN 7.8 GM/DL (6.4-8.2)
--- NOTE | 2017-05-17 17:57 | PD ---
HPI Chief Complaint: GI Complaint Time Seen by Provider: 17:52 Travel History International Travel<30 days: No Contact w/Intl Traveler<30days: No Traveled to known affect area: No History of Present Illness HPI 27-year-old female presents to the emergency department for evaluation of acute onset generalized abdominal pain, nausea, vomiting that started at 5 AM this morning. Patient states she's been unable to keep anything down and the pain is "severe." It is generalized. Denies any vaginal discharge or bleeding. No urinary symptoms. She has had an episode of diarrhea. Subjective fever and chills. She has no other symptoms to report. Patient has history of appendectomy and . She is uncertain if she is PFSH Past Medical History Asthma: No Anxiety: No Depression: No Heart Rhythm Problems: No Cancer: No Cardiovascular Problems: No Chemotherapy: No Chest Pain: No Congestive Heart Failure: No COPD: No Diabetes: No Diminished Hearing: No Endocrine: No Gastrointestinal Disorders: Yes GERD: Yes Genitourinary: No Musculoskeletal: No Neurologic: No Psychiatric: No Reproductive: No Immunizations Current: Yes Radiation Therapy: No Thyroid Disease: No Tetanus Vaccination: < 5 Years Influenza Vaccination: No ?: Unknown : 2 Para: 1 Past Surgical History Appendectomy: Yes Section: Yes (X 1) Other Surgery: Yes (APPENDECTOMY, ) Social History Alcohol Use: No Tobacco Use: No Substance Use: No (OCC MARIJUANA HX) Allergies-Medications (Allergen,Severity, Reaction): Coded Allergies: No Known Allergies (Verified Adverse Reaction, Unknown, 05/17/17) Reported Meds & Prescriptions Reported Meds & Active Scripts Active Zofran Odt (Ondansetron Odt) 4 Mg Tab 4 Mg SL Q8HR PRN Zofran (Ondansetron HCl) 4 Mg Tab 4 Mg PO Q6HR PRN Review of Systems Except as stated in HPI: all other systems reviewed are Neg Physical Exam Narrative GENERAL: Well-nourished female patient, in no acute distress. SKIN: Focused skin assessment warm/dry. HEAD: Atraumatic. Normocephalic. EYES: Pupils equal and round. No scleral icterus. No injection or drainage. ENT: No nasal bleeding or discharge. Mucous membranes pink and moist. NECK: Trachea midline. No JVD. CARDIOVASCULAR: Regular rate and rhythm. No murmur appreciated. RESPIRATORY: No accessory muscle use. Clear to auscultation. Breath sounds equal bilaterally. GASTROINTESTINAL: Abdomen soft, nondistended. Generalized tenderness to palpation. Mild guarding in the right lower quadrant. Hepatic and splenic margins not palpable. MUSCULOSKELETAL: No obvious deformities. No clubbing. No cyanosis. No edema. NEUROLOGICAL: Awake and alert. No obvious cranial nerve deficits. Motor grossly within normal limits. Normal speech. PSYCHIATRIC: Appropriate mood and affect; insight and judgment normal. Data Data Last Documented VS Vital Signs Date Time Temp Pulse Resp B/P (MAP) Pulse Ox O2 Delivery O2 Flow Rate FiO2 05/17/17 21:00 05/17/17 18:38 16 05/17/17 17:31 97.8 118 99 Room Air Orders Orders Urinalysis - C+S If Indicated (05/17/17 16:15) Ed Urine Pregnancytest Poc (05/17/17 16:15) Complete Blood Count With Diff (05/17/17 16:25) Comprehensive Metabolic Panel (05/17/17 16:25) Iv Access Insert/Monitor (05/17/17 17:55) Influenzae A/B Antigen (05/17/17 17:55) Sodium Chlor 0.9% 1000 Ml Inj (Ns 1000 M (05/17/17 18:00) Sodium Chlor 0.9% 1000 Ml Inj (Ns 1000 M (05/17/17 18:00) Acetaminophen 1000 Mg/100 Ml (Ofirmev 10 (05/17/17 18:00) Ct Abd/Pel W Iv Contrast(Rout) (05/17/17 ) Ketorolac Inj (Toradol Inj) (05/17/17 19:00) Ondansetron Inj (Zofran Inj) (05/17/17 19:15) Iohexol 350 Inj (Omnipaque 350 Inj) (05/17/17 19:57) Ed Discharge Order (05/17/17 20:23) Labs Laboratory Tests Test 05/17/17 16:22 05/17/17 16:30 Urine Color YELLOW Urine Turbidity HAZY Urine pH 5.5 Urine Specific [place] 1.026 Urine Protein TRACE mg/dL Urine Glucose (UA) NEG mg/dL Urine Ketones TRACE mg/dL Urine Occult Blood NEG Urine Nitrite NEG Urine Bilirubin NEG Urine Urobilinogen LESS THAN 2.0 MG/DL Urine Leukocyte Esterase NEG Urine WBC LESS THAN 1 /hpf Urine Squamous Epithelial Cells 14 /hpf Urine Bacteria RARE /hpf Urine Mucus MANY /lpf Microscopic Urinalysis Comment CULT NOT INDICATED White Blood Count 11.2 TH/MM3 Red Blood Count 5.12 MIL/MM3 Hemoglobin 15.9 GM/DL Hematocrit 45.7 % Mean Corpuscular Volume 89.4 FL Mean Corpuscular Hemoglobin 31.1 PG Mean Corpuscular Hemoglobin Concent 34.9 % Red Cell Distribution Width 12.0 % Platelet Count 220 TH/MM3 Mean Platelet Volume 10.1 FL Neutrophils (%) (Auto) 88.0 % Lymphocytes (%) (Auto) 4.5 % Monocytes (%) (Auto) 6.9 % Eosinophils (%) (Auto) 0.4 % Basophils (%) (Auto) 0.2 % Neutrophils # (Auto) 9.9 TH/MM3 Lymphocytes # (Auto) 0.5 TH/MM3 Monocytes # (Auto) 0.8 TH/MM3 Eosinophils # (Auto) 0.0 TH/MM3 Basophils # (Auto) 0.0 TH/MM3 CBC Comment DIFF FINAL Differential Comment Blood Urea Nitrogen 12 MG/DL Creatinine 0.77 MG/DL Random Glucose 93 MG/DL Total Protein 7.8 GM/DL Albumin 3.9 GM/DL Calcium Level 9.0 MG/DL Alkaline Phosphatase 57 U/L Aspartate Amino Transf (AST/SGOT) 11 U/L Alanine Aminotransferase (ALT/SGPT) 14 U/L Total Bilirubin 0.4 MG/DL Sodium Level 138 MEQ/L Potassium Level 4.0 MEQ/L Chloride Level 105 MEQ/L Carbon Dioxide Level 27.4 MEQ/L Anion Gap 6 MEQ/L Estimat Glomerular Filtration Rate 89 ML/MIN [facility] Medical Decision Making Medical Screen Exam Complete: Yes Emergency Medical Condition: Yes Medical Record Reviewed: Yes Differential Diagnosis Colitis versus diverticulitis versus gastroenteritis versus influenza Narrative Course 27-year-old female presents to emergency department for evaluation. Patient appears without distress. She does have significant right lower quadrant tenderness to palpation however she does have history of appendectomy appendicitis is not of acute concern. Patient is initially given pain control and Zofran while lab work pends. Laboratory Tests Test 05/17/17 16:22 05/17/17 16:30 Urine Color YELLOW Urine Turbidity HAZY Urine pH 5.5 Urine Specific [place] 1.026 Urine Protein TRACE mg/dL Urine Glucose (UA) NEG mg/dL Urine Ketones TRACE mg/dL Urine Occult Blood NEG Urine Nitrite NEG Urine Bilirubin NEG Urine Urobilinogen LESS THAN 2.0 MG/DL Urine Leukocyte Esterase NEG Urine WBC LESS THAN 1 /hpf Urine Squamous Epithelial Cells 14 /hpf Urine Bacteria RARE /hpf Urine Mucus MANY /lpf Microscopic Urinalysis Comment CULT NOT INDICATED White Blood Count 11.2 TH/MM3 Red Blood Count 5.12 MIL/MM3 Hemoglobin 15.9 GM/DL Hematocrit 45.7 % Mean Corpuscular Volume 89.4 FL Mean Corpuscular Hemoglobin 31.1 PG Mean Corpuscular Hemoglobin Concent 34.9 % Red Cell Distribution Width 12.0 % Platelet Count 220 TH/MM3 Mean Platelet Volume 10.1 FL Neutrophils (%) (Auto) 88.0 % Lymphocytes (%) (Auto) 4.5 % Monocytes (%) (Auto) 6.9 % Eosinophils (%) (Auto) 0.4 % Basophils (%) (Auto) 0.2 % Neutrophils # (Auto) 9.9 TH/MM3 Lymphocytes # (Auto) 0.5 TH/MM3 Monocytes # (Auto) 0.8 TH/MM3 Eosinophils # (Auto) 0.0 TH/MM3 Basophils # (Auto) 0.0 TH/MM3 CBC Comment DIFF FINAL Differential Comment Blood Urea Nitrogen 12 MG/DL Creatinine 0.77 MG/DL Random Glucose 93 MG/DL Total Protein 7.8 GM/DL Albumin 3.9 GM/DL Calcium Level 9.0 MG/DL Alkaline Phosphatase 57 U/L Aspartate Amino Transf (AST/SGOT) 11 U/L Alanine Aminotransferase (ALT/SGPT) 14 U/L Total Bilirubin 0.4 MG/DL Sodium Level 138 MEQ/L Potassium Level 4.0 MEQ/L Chloride Level 105 MEQ/L Carbon Dioxide Level 27.4 MEQ/L Anion Gap 6 MEQ/L Estimat Glomerular Filtration Rate 89 ML/MIN . Lab work is reviewed without acute concern. Patient continues to have significant pain. CT imaging is complete. Last Impressions Abdomen/Pelvis CT 05/17/17 0000 Signed Impressions: Service Date/Time: Wednesday, May 17, 2017 19:56 - CONCLUSION: Some free fluid within the cul-de-sac which is nonspecific. 18 mm left ovarian cyst otherwise unremarkable CT of the abdomen and pelvis. Brett Adames MD Findings are discussed with the patient. She'll be discharged home with prescription for Zofran. She is encouraged to follow-up with primary care provider and return immediately with any acute worsening symptoms. Diagnosis Primary Impression: Nausea & vomiting Qualified Codes: R11.2 - Nausea with vomiting, unspecified Additional Impressions: Lower abdominal pain Ovarian cyst Qualified Codes: N83.202 - Unspecified ovarian cyst, left side Referrals: [employer] Primary Care Physician Patient Instructions: Gastritis (ED), General Instructions Departure Forms: Tests/Procedures, Work Release Enter return to work date: May 20, 2017 Additional Instructions: Avoid abrasive an ascitic foods Follow-up with a primary care provider Return immediately to the emergency department with any acute worsening symptoms Med/Other Pt SpecificInfo: Prescription(s) given Scripts Ondansetron Odt (Zofran Odt) 4 Mg Tab 4 MG SL Q8HR Y for Nausea/Vomiting, #15 TAB 0 Refills Prov: Diann Sandoval 05/17/17 Disposition: 01 DISCHARGE HOME Condition: Stable Diann Sandoval May 17, 2017 17:56
[2017-05-17] MEDS ORDERED: SODIUM CHLOR 0.9% 1000 ML INJ 1,000 ML IV ONE ×2 (18:00)
[2017-05-17] MEDS ORDERED: ACETAMINOPHEN 1000 MG/100 ML 100 ML IV ONE (18:00)
[2017-05-17 18:38] VITALS: RESP 16
[2017-05-17] MEDS ORDERED: KETOROLAC TROMETHAMINE 30 MG/ML (IVP) VIAL IV PUSH ONE (19:00)
[2017-05-17] MEDS ORDERED: ONDANSETRON HCL 4 MG/2 ML VIAL IV PUSH ONE (19:15)
[2017-05-17] MEDS ORDERED: IOHEXOL 350 MG/ML 10 ML VIAL (for RAD DIAG) IVCONTRAST ONE (19:57)
--- NOTE | 2017-05-17 20:14 | RADRPT ---
EXAM DATE/TIME: 05/17/2017 19:56 [facility] COMPARISON: No previous studies available for comparison. INDICATIONS : Abdominal pain with nausea and vomiting. IV CONTRAST: 100 cc Omnipaque 350 (iohexol) IV ORAL CONTRAST: No oral contrast ingested. RADIATION DOSE: 5.16 CTDIvol (mGy) MEDICAL HISTORY : Gastroesophageal reflux disease. SURGICAL HISTORY : Appendectomy. section. ENCOUNTER: Initial ACUITY: 1 day PAIN SCALE: 9/10 LOCATION: abdomen TECHNIQUE: Volumetric scanning of the abdomen and pelvis was performed. Using automated exposure control and ad justment of the mA and/or kV according to patient size, radiation dose was kept as low as reasonably achievable to obtain optimal diagnostic quality images. DICOM format image data is available electro nically for review and comparison. FINDINGS: LOWER LUNGS: The visualized lower lungs are clear. LIVER: Homogeneous density without lesion. There is no dilation of the biliary tree. No calcified gallston es. SPLEEN: Normal size without lesion. PANCREAS: Within normal limits. KIDNEYS: Normal in size and shape. There is no mass, stone or hydronephrosis. ADRENAL GLANDS: Within normal limits. VASCULAR: There is no aortic aneurysm. BOWEL/MESENTERY: The stomach, small bowel, and colon demonstrate no acute abnormality. There is no free intraperitone al air or fluid. ABDOMINAL WALL: Within normal limits. RETROPERITONEUM: There is no lymphadenopathy. BLADDER: No wall thickening or mass. REPRODUCTIVE: Some free fluid is noted within the cul-de-sac which is nonspecific. The left ovary appears to contai n a cyst measuring 18 mm. INGUINAL: There is no lymphadenopathy or hernia. MUSCULOSKELETAL: Within normal limits for patient age. CONCLUSION: Some free fluid within the cul-de-sac which is nonspecific. 18 mm left ovarian cyst o therwise unremarkable CT of the abdomen and pelvis. Brett Adames MD on May 17, 2017 at 20:08 Board Certified Radiologist. This report was verified electronically.
[2017-05-17] MEDS ORDERED: ZOFR4TAB3 SL (20:25)
== END 2017-05-17 21:00 | disposition home or self-care (01) ==
LOC: NEPE 15:48
DX: R11.2 Nausea with vomiting, unspecified (principal); R10.30 Lower abdominal pain, unspecified; N83.202 Unspecified ovarian cyst, left side
CPT/HCPCS: 74177; 80053; 81001; 84703; 85025; 87804; 96361; 96365; 96375; 99284; J0131; J1885; J2405; J7030; Q9967

== ENCOUNTER 2017-09-20 13:10 | Emergency (ER) | payer MEDICAID ==
[~2017-09-20] VITALS: Ht 170.2 cm; Wt 65.0 kg
[~2017-09-20 13:10] MED LIST changes: -HYDR-3516 PO; -IBUP-232 PO; -NIFE1TAB85 PO; -OSEL75 PO; +ZOFR4TAB3 SL
[2017-09-20 13:30] VITALS: BP 123/57; PULSE 69; RESP 16; TEMP 98.7; O2SAT 100
--- NOTE | 2017-09-20 15:12 | PD ---
HPI Chief Complaint: GI Complaint Time Seen by Provider: 15:11 Travel History International Travel<30 days: No Contact w/Intl Traveler<30days: No Traveled to known affect area: No History of Present Illness HPI 27-year-old female presents emergency department with nausea and vomiting for 4 days. She states headache started this morning. Patient states it is a piercing headache to the central part of her head, and currently a 9 out of 10. She states is the worst headache of her life. Patient has also had diarrhea associated with the nausea. Patient has generalized abdominal discomfort. Patient denies chest pain or shortness of breath. Patient has no known drug allergies. PFSH Past Medical History Asthma: No Anxiety: No Depression: No Heart Rhythm Problems: No Cancer: No Cardiovascular Problems: No Chemotherapy: No Chest Pain: No Congestive Heart Failure: No COPD: No Diabetes: No Diminished Hearing: No Endocrine: No Gastrointestinal Disorders: Yes GERD: Yes Genitourinary: No Musculoskeletal: No Neurologic: No Psychiatric: No Reproductive: No Immunizations Current: Yes Radiation Therapy: No Thyroid Disease: No ?: Not : 2 Para: 1 Past Surgical History Appendectomy: Yes Section: Yes (X 1) Other Surgery: Yes (APPENDECTOMY, ) Social History Alcohol Use: No Tobacco Use: No Substance Use: No (OCC MARIJUANA HX) Allergies-Medications (Allergen,Severity, Reaction): Coded Allergies: No Known Allergies (Verified Adverse Reaction, Unknown, 09/20/17) Reported Meds & Prescriptions Reported Meds & Active Scripts Active No Active Prescriptions or Reported Medications Review of Systems Except as stated in HPI: all other systems reviewed are Neg General / Constitutional: No: Fever Eyes: No: Visual changes HENT: Positive: Headaches, Lightheadedness, No: Vertigo, Sore Throat, Rhinitis , Rhinorrhea, Congestion, Nosebleed, Neck Stiffness, Neck Pain, Dental Difficulties, Earache Cardiovascular: No: Chest Pain or Discomfort Respiratory: No: Cough, Shortness of Breath Gastrointestinal: Positive: Nausea, Vomiting, Diarrhea, Abdominal Pain Genitourinary: No: Urgency, Frequency, Dysuria, Discharge, Vaginal Bleeding Musculoskeletal: No: Pain Skin: No Rash Neurologic: No: Weakness Psychiatric: No: Depression Endocrine: No: Polydipsia Hematologic/Lymphatic: No: Easy Bruising Physical Exam Narrative GENERAL: Patient appears in moderate distress. SKIN: Warm and dry. She has increased pallor. Decreased turgor. HEAD: Atraumatic. Normocephalic. Patient has no sinus tenderness to percussion or palpation EYES: Pupils equal and round. No scleral icterus. No injection or drainage. Ocular motion is equal bilaterally. No nystagmus appreciated. ENT: No nasal bleeding or discharge. Mucous membranes pink and dry. TMs are clear. Pharynx is clear. Airways patent NECK: Trachea midline. Supple and nontender. CARDIOVASCULAR: Regular rate and rhythm. RESPIRATORY: No accessory muscle use. Clear to auscultation. Breath sounds equal bilaterally. GASTROINTESTINAL: Abdomen soft, mild to moderate diffuse tenderness, nondistended. No point tenderness or rebound. Hepatic and splenic margins not palpable. MUSCULOSKELETAL: Extremities without clubbing, cyanosis, or edema. No obvious deformities. NEUROLOGICAL: Awake and alert. No obvious cranial nerve deficits. Motor grossly within normal limits. Five out of 5 muscle strength in the arms and legs. Normal speech. PSYCHIATRIC: Appropriate mood and affect; insight and judgment normal. Data Data Last Documented VS Vital Signs Date Time Temp Pulse Resp B/P (MAP) Pulse Ox O2 Delivery O2 Flow Rate FiO2 09/20/17 15:59 16 09/20/17 15:39 98 Room Air 09/20/17 13:30 98.7 69 123/57 (79) Orders Orders Complete Blood Count With Diff (09/20/17 15:18) Comprehensive Metabolic Panel (09/20/17 15:18) Ct Brain W/O Iv Contrast(Rout) (09/20/17 15:18) Ecg Monitoring (09/20/17 15:18) Iv Access Insert/Monitor (09/20/17 15:18) Oximetry (09/20/17 15:18) Sodium Chloride 0.9% Flush (Ns Flush) (09/20/17 15:30) Diphenhydramine Inj (Benadryl Inj) (09/20/17 15:30) Metoclopramide Inj (Reglan Inj) (09/20/17 15:30) Sodium Chlor 0.9% 1000 Ml Inj (Ns 1000 M (09/20/17 15:18) Morphine Inj (Morphine Inj) (09/20/17 15:30) Urinalysis - C+S If Indicated (09/20/17 15:18) Ed Urine Pregnancytest Poc (09/20/17 15:18) Morphine Inj (Morphine Inj) (09/20/17 15:30) Labs Laboratory Tests Test 09/20/17 15:40 White Blood Count 5.3 TH/MM3 Red Blood Count 4.66 MIL/MM3 Hemoglobin 14.1 GM/DL Hematocrit 41.8 % Mean Corpuscular Volume 89.7 FL Mean Corpuscular Hemoglobin 30.3 PG Mean Corpuscular Hemoglobin Concent 33.8 % Red Cell Distribution Width 12.8 % Platelet Count 163 TH/MM3 Mean Platelet Volume 10.1 FL Neutrophils (%) (Auto) 61.7 % Lymphocytes (%) (Auto) 27.1 % Monocytes (%) (Auto) 9.3 % Eosinophils (%) (Auto) 1.7 % Basophils (%) (Auto) 0.2 % Neutrophils # (Auto) 3.3 TH/MM3 Lymphocytes # (Auto) 1.4 TH/MM3 Monocytes # (Auto) 0.5 TH/MM3 Eosinophils # (Auto) 0.1 TH/MM3 Basophils # (Auto) 0.0 TH/MM3 CBC Comment DIFF FINAL Differential Comment Urine Color YELLOW Urine Turbidity HAZY Urine pH 5.5 Urine Specific Meredith 1.034 Urine Protein TRACE mg/dL Urine Glucose (UA) NEG mg/dL Urine Ketones 10 mg/dL Urine Occult Blood NEG Urine Nitrite NEG Urine Bilirubin NEG Urine Urobilinogen LESS THAN 2.0 MG/DL Urine Leukocyte Esterase NEG Urine WBC 2 /hpf Urine Squamous Epithelial Cells 8 /hpf Urine Mucus MANY /lpf Microscopic Urinalysis Comment CULT NOT INDICATED Blood Urea Nitrogen 13 MG/DL Creatinine 0.56 MG/DL Random Glucose 73 MG/DL Total Protein 7.4 GM/DL Albumin 4.0 GM/DL Calcium Level 8.8 MG/DL Alkaline Phosphatase 57 U/L Aspartate Amino Transf (AST/SGOT) 14 U/L Alanine Aminotransferase (ALT/SGPT) 21 U/L Total Bilirubin 0.2 MG/DL Sodium Level 142 MEQ/L Potassium Level 3.8 MEQ/L Chloride Level 109 MEQ/L Carbon Dioxide Level 24.4 MEQ/L Anion Gap 9 MEQ/L Estimat Glomerular Filtration Rate 129 ML/MIN [facility] Medical Decision Making Medical Screen Exam Complete: Yes Emergency Medical Condition: Yes Differential Diagnosis Nausea and vomiting. Gastroenteritis. Diarrhea. Headache. Dehydration. Intracranial bleed. Migraine. Narrative Course Patient appears in moderate distress. Labs ordered including CBC, CMP, urinalysis. IV access is obtained the patient is given 25 mg diphenhydramine IV, 10 mg Reglan IV, 2 mg morphine IV, and 1000 mL of normal saline bolus. CT of the head is ordered. CBC is unremarkable. Chemistry essentially unremarkable. Urinalysis is somewhat concentrated with a specific gravity 1.034, ketones is 10 , otherwise no acute findings. CT is unremarkable. Patient feels improved after the above medications. Patient was discharged home with Phenergan 25 mg 1 every 6 hours as needed nausea. Patient can take Tylenol and ibuprofen as needed. Patient should rest and push fluids tomorrow. Work note is given. Patient can return if symptoms worsen as needed. Diagnosis Primary Impression: Nausea and vomiting Qualified Codes: R11.2 - Nausea with vomiting, unspecified Additional Impression: Headache Qualified Codes: R51 - Headache Patient Instructions: Acute Headache (ED), Acute Nausea and Vomiting (ED), General Instructions Departure Forms: Work Release Enter return to work date: Sep 22, 2017 Additional Instructions: CBC is unremarkable. Chemistry essentially unremarkable. Urinalysis is somewhat concentrated with a specific gravity 1.034, ketones is 10 , otherwise no acute findings. CT is unremarkable. Patient feels improved after the above medications. Patient was discharged home with Phenergan 25 mg 1 every 6 hours as needed nausea. Patient can take Tylenol and ibuprofen as needed. Patient should rest and push fluids tomorrow. Work note is given. Patient can return if symptoms worsen as needed. Med/Other Pt SpecificInfo: Prescription(s) given Scripts No Active Prescriptions or Reported Meds Disposition: 01 DISCHARGE HOME Condition: Stable Weston Hernandez Sep 20, 2017 15:12
[2017-09-20] MEDS ORDERED: SODIUM CHLOR 0.9% 1000 ML INJ 1,000 ML IV ONE (15:18)
[2017-09-20] MEDS ORDERED: MORPHINE SULFATE 4 MG/ML INJ IV PUSH ONE (15:30)
[2017-09-20] MEDS ORDERED: METOCLOPRAMIDE HCL 10 MG/2 ML VIAL IVP ONE (15:30)
[2017-09-20] MEDS ORDERED: MORPHINE SULFATE 2 MG/ML SYRINGE IV PUSH ONE (15:30)
[2017-09-20] MEDS ORDERED: SODIUM CHLORIDE 0.9% FLUSH 10 ML FLUSH IVF PRN (15:30)
[2017-09-20] MEDS ORDERED: diphenhydrAMINE HCL 50 MG/ML VIAL IVP ONE (15:30)
[2017-09-20 15:39] VITALS: RESP 16; O2SAT 98
[2017-09-20 15:59] VITALS: RESP 16
[2017-09-20 16:03] LABS: AUTOMATED NEUTROPHIL # 3.3 TH/MM3 (1.8-7.7); BASOPHIL % 0.2 % (0.0-2.0); EOSINOPHIL # 0.1 TH/MM3 (0-0.4); EOSINOPHIL % 1.7 % (0.0-4.0); HEMATOCRIT 41.8 % (35.0-46.0); HEMOGLOBIN 14.1 GM/DL (11.6-15.3); LYMPH % 27.1 % (9.0-44.0); LYMPHOCYTE # 1.4 TH/MM3 (1.0-4.8); MEAN CELL VOLUME 89.7 FL (80.0-100.0); MEAN CORPUSCULAR HEMOGLOBIN 30.3 PG (27.0-34.0); MEAN CORPUSCULAR HGB CONC 33.8 % (32.0-36.0); MEAN PLATELET VOLUME 10.1 FL (7.0-11.0); MONO % 9.3 % (0.0-8.0); MONOCYTE # 0.5 TH/MM3 (0-0.9); NEUT % 61.7 % (16.0-70.0); PLATELET COUNT 163 TH/MM3 (150-450); RED BLOOD COUNT 4.66 MIL/MM3 (4.00-5.30); RED CELL DISTRIBUTION WIDTH 12.8 % (11.6-17.2); WHITE BLOOD COUNT 5.3 TH/MM3 (4.0-11.0)
[2017-09-20 16:14] LABS: BILIRUBIN, URINE NEG (NEG); BLOOD, URINE NEG (NEG); GLUCOSE,URINE NEG (NEG); KETONE, URINE 10 mg/dL (NEG); MUCUS URINE MANY /lpf (OCC); NITRITE,URINE NEG (NEG); PH, URINE 5.5 (5.0-8.5); SQUAMOUS EPITHELIAL CELL URINE 8 /hpf (0-5); URINE COLOR YELLOW (YELLW/STRAW); URINE LEUKOCYTE ESTERASE NEG (NEG)
--- NOTE | 2017-09-20 16:20 | RADRPT ---
EXAM DATE: 09/20/2017 4:16 PM EDT AGE/SEX: 27 years / Female INDICATIONS: Cephalgia today. CLINICAL DATA: This is the patient's initial encounter. Patient reports that signs and symptoms have been present for 1 day and indicates a pain score of 7/10. MEDICAL/SURGICAL HISTORY: Gastroesophageal reflux disease. Appendectomy. RADIATION DOSE: 36.02 CTDI (mGy) COMPARISON: No prior exams available for comparison. TECHNIQUE: CT of the head without contrast. Using automated exposure control and adjustment of the mA and/or kV according to patient size, radiation dose was kept as low as reasonably achievable to ob tain optimal diagnostic quality images. FINDINGS: There is no evidence for intracranial hemorrhage, mass effect, mass lesions, edema, or extra-axial fl uid collections. The visualized bony structures appear intact. The ventricles are normal size for t he patient's age. There are no signs of acute infarction for technique. CONCLUSION: Unremarkable study. Electronically signed by: Hardy Herrera MD 09/20/2017 4:19 PM EDT
[2017-09-20 16:21] LABS: ALT (GPT) 21 U/L (10-53); AST (GOT) 14 U/L (15-37); BICARBONATE 24.4 MEQ/L (21.0-32.0); BLOOD UREA NITROGEN 13 MG/DL (7-18); CALCIUM 8.8 MG/DL (8.5-10.1); CHLORIDE 109 MEQ/L (98-107); CREATININE 0.56 MG/DL (0.50-1.00); GLOMERULAR FILTRATION RATE 129 ML/MIN (>89); GLUCOSE,RANDOM 73 MG/DL (74-106); SODIUM (NA) 142 MEQ/L (136-145)
[2017-09-20 16:23] LABS: ALKALINE PHOSPHATASE 57 U/L (45-117); TOTAL BILIRUBIN ADULT 0.2 MG/DL (0.2-1.0); TOTAL PROTEIN 7.4 GM/DL (6.4-8.2)
[2017-09-20] MEDS ORDERED: PROM25TA10 PO (16:49)
== END 2017-09-20 17:30 | disposition home or self-care (01) ==
LOC: NEPD 13:10
DX: R11.2 Nausea with vomiting, unspecified (principal); R51 Headache
CPT/HCPCS: 70450; 80053; 81001; 84703; 85025; 96361; 96374; 96375; 99284; J1200; J2270; J2765; J7030

== ENCOUNTER 2017-09-24 12:58 | Emergency (ER) | payer MEDICAID ==
[~2017-09-24] VITALS: Ht 170.2 cm; Wt 58.0 kg
[~2017-09-24 12:58] MED LIST changes: +PROM25TA10 PO; -ZOFR4TAB PO; -ZOFR4TAB3 SL
[2017-09-24 13:31] VITALS: BP 104/63; PULSE 102; RESP 17; TEMP 98.6; O2SAT 99
[2017-09-24 14:18] LABS: AUTOMATED NEUTROPHIL # 6.4 TH/MM3 (1.8-7.7); BASOPHIL % 0.2 % (0.0-2.0); EOSINOPHIL # 0.2 TH/MM3 (0-0.4); EOSINOPHIL % 2.4 % (0.0-4.0); HEMATOCRIT 42.2 % (35.0-46.0); HEMOGLOBIN 14.3 GM/DL (11.6-15.3); LYMPH % 13.2 % (9.0-44.0); LYMPHOCYTE # 1.1 TH/MM3 (1.0-4.8); MEAN CELL VOLUME 88.8 FL (80.0-100.0); MEAN CORPUSCULAR HGB CONC 33.8 % (32.0-36.0); MEAN PLATELET VOLUME 10.4 FL (7.0-11.0); MONO % 9.2 % (0.0-8.0); MONOCYTE # 0.8 TH/MM3 (0-0.9); PLATELET COUNT 192 TH/MM3 (150-450); RED BLOOD COUNT 4.75 MIL/MM3 (4.00-5.30); RED CELL DISTRIBUTION WIDTH 12.9 % (11.6-17.2); WHITE BLOOD COUNT 8.5 TH/MM3 (4.0-11.0)
[2017-09-24 14:35] LABS: AST (GOT) 13 U/L (15-37); BICARBONATE 26.2 MEQ/L (21.0-32.0); BLOOD UREA NITROGEN 11 MG/DL (7-18); CALCIUM 8.6 MG/DL (8.5-10.1); CHLORIDE 108 MEQ/L (98-107); CREATININE 0.67 MG/DL (0.50-1.00); GLOMERULAR FILTRATION RATE 105 ML/MIN (>89); GLUCOSE,RANDOM 92 MG/DL (74-106); SODIUM (NA) 142 MEQ/L (136-145)
[2017-09-24 14:38] LABS: ALKALINE PHOSPHATASE 50 U/L (45-117); ALT (GPT) 24 U/L (10-53); TOTAL BILIRUBIN ADULT 0.3 MG/DL (0.2-1.0); TOTAL PROTEIN 7.4 GM/DL (6.4-8.2)
[2017-09-24] MEDS ORDERED: SODIUM CHLOR 0.9% 1000 ML INJ 1,000 ML IV ONE (14:38)
[2017-09-24] MEDS ORDERED: PROCHLORPERAZINE INJ 10 MG/2 ML VIAL IVP ONE (14:45)
[2017-09-24] MEDS ORDERED: SODIUM CHLORIDE 0.9% FLUSH 10 ML FLUSH IVF PRN (14:45)
[2017-09-24] MEDS ORDERED: KETOROLAC TROMETHAMINE 30 MG/ML (IVP) VIAL IVP ONE (14:45)
[2017-09-24] MEDS ORDERED: diphenhydrAMINE HCL 50 MG/ML VIAL IVP ONE (14:45)
--- NOTE | 2017-09-24 14:53 | PD ---
HPI Chief Complaint: Medical Clearance Time Seen by Provider: 14:32 Travel History International Travel<30 days: No Contact w/Intl Traveler<30days: No Traveled to known affect area: No History of Present Illness HPI Patient is a 19-year-old female presenting to emerge from for evaluation of headache and nausea. Patient states she was here on Saturday with similar complaints. He states she felt a little better over the weekend but then yesterday started to feel bad again. She states she feels "confused", dizzy, headache is located behind her eyes and in her forehead. She states is throbbing. She took acetaminophen last night for her headache and was able to sleep comfortably. Today the symptoms started around 11 AM, patient has not taken any medications to alleviate the pain at this point. She reports photophobia, nausea but no vomiting. She denies any abdominal pain, chest pain , shortness of breath, visual changes. Symptom onset is fairly sudden, symptoms are moderate in nature. Acetaminophen appears to alleviate the symptoms somewhat but was not taken today. PFSH Past Medical History GERD: Yes Immunizations Current: Yes : 2 Para: 1 Past Surgical History Appendectomy: Yes Section: Yes (X 1) Other Surgery: Yes (APPENDECTOMY, ) Social History Alcohol Use: No Tobacco Use: No Substance Use: No (OCC MARIJUANA HX) Allergies-Medications (Allergen,Severity, Reaction): Coded Allergies: No Known Allergies (Verified Adverse Reaction, Unknown, 09/20/17) Reported Meds & Prescriptions Reported Meds & Active Scripts Active Phenergan (Promethazine HCl) 25 Mg Tablet 25 Mg PO Q6H PRN Review of Systems Except as stated in HPI: all other systems reviewed are Neg HENT: Positive: Headaches, No: Rhinitis, Congestion, Neck Stiffness, Neck Pain Cardiovascular: No: Chest Pain or Discomfort Respiratory: No: Shortness of Breath Gastrointestinal: Positive: Nausea, No: Vomiting, Diarrhea, Abdominal Pain Neurologic: Positive: Dizziness, Headache Physical Exam Narrative GENERAL: Well-developed, well-nourished, alert female. Presenting in no acute distress. SKIN: Warm and dry. HEAD: Atraumatic. Normocephalic. EYES: Pupils equal and round. No scleral icterus. No injection or drainage. ENT: No nasal bleeding or discharge. Mucous membranes pink and moist. NECK: Trachea midline. No JVD. CARDIOVASCULAR: Regular rate and rhythm. RESPIRATORY: No accessory muscle use. Clear to auscultation. Breath sounds equal bilaterally. GASTROINTESTINAL: Abdomen soft, non-tender, nondistended. Hepatic and splenic margins not palpable. MUSCULOSKELETAL: Extremities without clubbing, cyanosis, or edema. No obvious deformities. NEUROLOGICAL: Awake and alert. No obvious cranial nerve deficits. Motor grossly within normal limits. Five out of 5 muscle strength in the arms and legs. Normal speech. PSYCHIATRIC: Appropriate mood and affect; insight and judgment normal. Data Data Last Documented VS Vital Signs Date Time Temp Pulse Resp B/P (MAP) Pulse Ox O2 Delivery O2 Flow Rate FiO2 09/24/17 13:31 98.6 102 17 104/63 (77) 99 Orders Orders Complete Blood Count With Diff (09/24/17 13:35) Comprehensive Metabolic Panel (09/24/17 13:35) Iv Access Insert/Monitor (09/24/17 14:38) Oximetry (09/24/17 14:38) Sodium Chloride 0.9% Flush (Ns Flush) (09/24/17 14:45) Ketorolac Inj (Toradol Inj) (09/24/17 14:45) Prochlorperazine Inj (Compazine Inj) (09/24/17 14:45) Diphenhydramine Inj (Benadryl Inj) (09/24/17 14:45) Sodium Chlor 0.9% 1000 Ml Inj (Ns 1000 M (09/24/17 14:38) Labs Laboratory Tests Test 09/24/17 13:50 White Blood Count 8.5 TH/MM3 Red Blood Count 4.75 MIL/MM3 Hemoglobin 14.3 GM/DL Hematocrit 42.2 % Mean Corpuscular Volume 88.8 FL Mean Corpuscular Hemoglobin 30.0 PG Mean Corpuscular Hemoglobin Concent 33.8 % Red Cell Distribution Width 12.9 % Platelet Count 192 TH/MM3 Mean Platelet Volume 10.4 FL Neutrophils (%) (Auto) 75.0 % Lymphocytes (%) (Auto) 13.2 % Monocytes (%) (Auto) 9.2 % Eosinophils (%) (Auto) 2.4 % Basophils (%) (Auto) 0.2 % Neutrophils # (Auto) 6.4 TH/MM3 Lymphocytes # (Auto) 1.1 TH/MM3 Monocytes # (Auto) 0.8 TH/MM3 Eosinophils # (Auto) 0.2 TH/MM3 Basophils # (Auto) 0.0 TH/MM3 CBC Comment DIFF FINAL Differential Comment Blood Urea Nitrogen 11 MG/DL Creatinine 0.67 MG/DL Random Glucose 92 MG/DL Total Protein 7.4 GM/DL Albumin 4.0 GM/DL Calcium Level 8.6 MG/DL Alkaline Phosphatase 50 U/L Aspartate Amino Transf (AST/SGOT) 13 U/L Alanine Aminotransferase (ALT/SGPT) 24 U/L Total Bilirubin 0.3 MG/DL Sodium Level 142 MEQ/L Potassium Level 3.7 MEQ/L Chloride Level 108 MEQ/L Carbon Dioxide Level 26.2 MEQ/L Anion Gap 8 MEQ/L Estimat Glomerular Filtration Rate 105 ML/MIN MDM Medical Decision Making Medical Screen Exam Complete: Yes Emergency Medical Condition: Yes Medical Record Reviewed: Yes Interpretation(s) Vital Signs Date Time Temp Pulse Resp B/P (MAP) Pulse Ox O2 Delivery O2 Flow Rate FiO2 09/24/17 13:31 98.6 102 17 104/63 (77) 99 Differential Diagnosis Migraine versus sinusitis versus tension headache versus cluster headache versus other Narrative Course Patient is a 19-year-old female presenting to emerge department for reevaluation of a headache and nausea. Medical records reviewed. Patient was seen and evaluated on 09/20/17. She had labs and a CT scan of the brain performed. There were no acute findings at that time. Patient's labs were drawn while waiting in triage today. CBC with no acute findings, chemistry remains unremarkable. Vital signs reviewed, patient is mildly tachycardic vital signs are otherwise stable. Patient will be medicated for pain and given a liter of IV fluids. Will reevaluate. Patient reports improvement in her symptoms. Patient was encouraged to continue symptom management home. To the ongoing nature of her symptoms. She will be given a prescription for antibiotic, symptoms could be related to a sinusitis. Her symptoms of an ongoing for well over a week per her report. She is encouraged to follow-up with her primary doctor or return to emergency department for any new or worsening symptoms. Patient verbalized understanding of instructions. Patient stable for discharge. Diagnosis Primary Impression: Head ache Qualified Codes: R51 - Headache Additional Impression: Acute sinusitis Qualified Codes: J01.10 - Acute frontal sinusitis, unspecified Referrals: Primary Care Physician Patient Instructions: Acute Headache (ED), General Instructions, Sinusitis (ED) Additional Instructions: Follow-up with your primary doctor Continue symptom management as discussed Return to emergency department for any new or worsening symptoms Med/Other Pt SpecificInfo: Prescription(s) given Scripts Amoxicillin (Amoxicillin) 875 Mg Tab 875 MG PO BID for Infection for 10 Days, #20 TAB 0 Refills Prov: Shirley Grewal 09/24/17 Ibuprofen (Ibuprofen) 800 Mg Tab 800 MG PO Q6HR Y for PAIN, #40 TAB 0 Refills Prov: Shirley Grewal 09/24/17 Disposition: 01 DISCHARGE HOME Condition: Stable Shilrey Grewal Sep 24, 2017 14:53
--- NOTE | 2017-09-24 15:19 | PD ---
Physical Exam Date Seen by Provider: Sep 24, 2017 Narrative This patient presents with recurrence of headache. She was seen here a couple of days ago for same and had a complete workup which was negative. She reports onset of recurrent headache yesterday. It was relieved by Tylenol yesterday but she has not taken any Tylenol today. Data Data Last Documented VS Vital Signs Date Time Temp Pulse Resp B/P (MAP) Pulse Ox O2 Delivery O2 Flow Rate FiO2 09/24/17 13:31 98.6 102 17 104/63 (77) 99 Orders Orders Complete Blood Count With Diff (09/24/17 13:35) Comprehensive Metabolic Panel (09/24/17 13:35) Iv Access Insert/Monitor (09/24/17 14:38) Oximetry (09/24/17 14:38) Sodium Chloride 0.9% Flush (Ns Flush) (09/24/17 14:45) Ketorolac Inj (Toradol Inj) (09/24/17 14:45) Prochlorperazine Inj (Compazine Inj) (09/24/17 14:45) Diphenhydramine Inj (Benadryl Inj) (09/24/17 14:45) Sodium Chlor 0.9% 1000 Ml Inj (Ns 1000 M (09/24/17 14:38) Labs Laboratory Tests Test 09/24/17 13:50 White Blood Count 8.5 TH/MM3 Red Blood Count 4.75 MIL/MM3 Hemoglobin 14.3 GM/DL Hematocrit 42.2 % Mean Corpuscular Volume 88.8 FL Mean Corpuscular Hemoglobin 30.0 PG Mean Corpuscular Hemoglobin Concent 33.8 % Red Cell Distribution Width 12.9 % Platelet Count 192 TH/MM3 Mean Platelet Volume 10.4 FL Neutrophils (%) (Auto) 75.0 % Lymphocytes (%) (Auto) 13.2 % Monocytes (%) (Auto) 9.2 % Eosinophils (%) (Auto) 2.4 % Basophils (%) (Auto) 0.2 % Neutrophils # (Auto) 6.4 TH/MM3 Lymphocytes # (Auto) 1.1 TH/MM3 Monocytes # (Auto) 0.8 TH/MM3 Eosinophils # (Auto) 0.2 TH/MM3 Basophils # (Auto) 0.0 TH/MM3 CBC Comment DIFF FINAL Differential Comment Blood Urea Nitrogen 11 MG/DL Creatinine 0.67 MG/DL Random Glucose 92 MG/DL Total Protein 7.4 GM/DL Albumin 4.0 GM/DL Calcium Level 8.6 MG/DL Alkaline Phosphatase 50 U/L Aspartate Amino Transf (AST/SGOT) 13 U/L Alanine Aminotransferase (ALT/SGPT) 24 U/L Total Bilirubin 0.3 MG/DL Sodium Level 142 MEQ/L Potassium Level 3.7 MEQ/L Chloride Level 108 MEQ/L Carbon Dioxide Level 26.2 MEQ/L Anion Gap 8 MEQ/L Estimat Glomerular Filtration Rate 105 ML/MIN MDM Supervised Visit with RIVAS: Yes Narrative Course I, Dr. Horne, have reviewed the advance practice practitioner's documentation and am in agreement, met with the patient face to face, made the diagnosis, and the medical decision making was done by me. *My assessment and Findings: Vital Signs Date Time Temp Pulse Resp B/P (MAP) Pulse Ox O2 Delivery O2 Flow Rate FiO2 09/24/17 13:31 98.6 102 17 104/63 (77) 99 CBC & BMP Diagram 09/24/17 13:50 Total Protein 7.4, Albumin 4.0, Calcium Level 8.6, Alkaline Phosphatase 50, Aspartate Amino Transf (AST/SGOT) 13 L, Alanine Aminotransferase (ALT/SGPT) 24, Total Bilirubin 0.3 The patient is ambulatory in no distress. Please see Shirley Mitchell NP's note for a more detailed H&P, final diagnosis and disposition Emily Horne MD Sep 24, 2017 15:19
[2017-09-24] MEDS ORDERED: AMOX875T PO (16:12)
[2017-09-24] MEDS ORDERED: IBUP1TAB7 PO (16:12)
== END 2017-09-24 17:10 | disposition home or self-care (01) ==
LOC: NEPD 12:58
DX: R51 Headache (principal); J01.10 Acute frontal sinusitis, unspecified; R11.0 Nausea; R42 Dizziness and giddiness
CPT/HCPCS: 80053; 85025; 96374; 96375; 99284; J0780; J1200; J1885; J7030